=== PATIENT | female | born 1995 | race Caucasian/White ===

== ENCOUNTER 2016-03-15 20:30 | Outpatient (CLI) | payer OTHER ==
[~2016-03-15] VITALS: Ht 157.5 cm; Wt 86.0 kg
[~2016-03-15 20:30] MED LIST: ACET500C5 PO; BEN25 PO; CALC300T4 PO; ONDA4TAB14 PO; PRENAT PO; SODI126M NASAL
[2016-03-15 20:57] VITALS: Ht 157.5 cm; Wt 86.0 kg
[2016-03-15 20:58] VITALS: BP 118/72; PULSE 125; RESP 18
[2016-03-15 22:12] LABS: ADD UMIC YES; URINE BILIRUBIN (Dip) NEGATIVE (NEGATIVE); URINE BLOOD (Dip) NEGATIVE (NEGATIVE); URINE COLOR LT. YELLOW (YELLOW); URINE GLUCOSE (Dip) NEGATIVE (NEGATIVE); URINE KETONES (Dip) TRACE (NEGATIVE); URINE LEUKOCYTE ESTERASE (Dip) 1+ (NEGATIVE); URINE NITRITE (Dip) NEGATIVE (NEGATIVE); URINE TOTAL PROTEIN (Dip) NEGATIVE (NEGATIVE); URINE UROBILINOGEN (Dip) 1.0 E.U./dL (0.1-1.0)
[2016-03-15 22:29] LABS: BACTERIA,URINE FEW; SQUAMOUS EPITHELIAL CELL,UR MANY; URINE RBCS 0-2 /HPF (0)
--- NOTE | 2016-03-15 22:52 | HP ---
Date/Time of Note Date/Time of Note DATE: 03/15/16 TIME: 22:32 OB - History Hx of Present Free Text/Dictation Triage Pt is a 20yo G1 at 33+2 with no PMHx or issues presenting to OB triage for evaluation of a prolonged cough, sore throat and nasal congestion x1 month. Pt states she has recently started taking Robitussin DM and using Vicks VapoRub and nasal saline spray with little effect. Also drinking hot tea, gargling with salt water and using [place] cough drops. Does not feel like she is getting any better. Today pt also had three episodes of nonbloody, nonbilious vomiting with white product after coughing. Denies nausea. Able to tolerate POs w/o difficulty. C/o dizziness at times with standing. No syncopal events. Has noticed urinary incontinence with coughing as well. Reports normal FM, denies LOF, VB, UCs, fevers, chills or palpitations. Partner has only recently become ill within the last few days. Estimated Due Date: May 01, 2016 : 1 Obstetrical Complications: None Medical Complications: None Past Family/Social History * Past Medical, Surgical, Family and Obstetric Histories reviewed from chart. OB Admission Exam Vital Signs Vital Signs Vital Signs Date Time Temp Pulse Resp B/P Pulse Ox O2 Delivery O2 Flow Rate FiO2 03/15/16 20:58 98.4 125 18 118/72 Room Air Physical Exam HEENT: Abnormal (slight erythema around nares, mouth breathing) Heart: Other (tachycardia, regular rhythm) Lungs: Clear (at apices bilaterally, no wheezes, rales or rhonchi), Diminish ( at bases bilaterally), Equal Abdomen: WNL (gravid) Heart Rate: 130's Accelerations: Accelerations Present Decelerations: No Decelerations Varibility: Moderate Contractions on Admission: None OB Assessment/Plan Other Assessment: URI with protracted course Normal Reassuring well being Other plan: Discussed supportive measures for URI including use of a henna pot, steam, warm moist compresses for head/nasal congestion and continuing antitussive and cough drops for cough and soothing throat. Given tachycardia and trace ketones on U/A, recommend IVF for hydration. Recommend pt be further evaluated in ED given quite protracted course of URI. Pt may need CXR which, as discussed with the patient, has minimal radiation exposure to the fetus (and no direct radiation to the fetus) with shielding of the abdomen. Pt to f/up with OB as outpatient as scheduled. FKC, PTL, PPROM precautions reviewed. SOSA MIRANDA MD Mar 15, 2016 22:44
--- NOTE | 2016-03-16 04:58 | QN ---
Documentation Comment Chart reviewed and apparently pt left ED without being seen. Vital signs in ED notable for T 100.4. OB handstitching machine armhole feller will call pt and request pt return for IVF and further work-up given fever. SOSA MIRANDA MD Mar 16, 2016 04:57
== END 2016-03-15 23:00 | disposition home or self-care (01) ==
LOC: OBT 20:30 → L-D 20:31 → OBT 23:00
PROVIDERS: ATTEND Obstetrics & Gynecology
DX: O99.513 Diseases of the respiratory system complicating pregnancy, third trimester (principal); J06.9 Acute upper respiratory infection, unspecified; Z3A.33 33 weeks gestation of pregnancy
CPT/HCPCS: 81001; Z7500; 81003; G0463

== ENCOUNTER 2016-03-15 23:05 | Emergency (ER) | payer SELFPAY ==
[~2016-03-15] VITALS: Ht 162.6 cm; Wt 85.5 kg
[2016-03-15 23:08] VITALS: Ht 162.6 cm; Wt 85.5 kg
== END 2016-03-16 02:35 | disposition left against medical advice (07) ==
LOC: FTE 23:05
DX: Z53.21 Procedure and treatment not carried out due to patient leaving prior to being seen by health care provider (principal)

== ENCOUNTER 2016-04-26 11:40 | Inpatient (IN) | payer OTHER ==
[~2016-04-26] VITALS: Ht 157.5 cm; Wt 90.2 kg
[~2016-04-26 11:40] MED LIST changes: -ACET500C5 PO; -BEN25 PO; -CALC300T4 PO; -ONDA4TAB14 PO; -SODI126M NASAL
[2016-04-26 11:54] VITALS: Ht 157.5 cm; Wt 90.2 kg
[2016-04-26] MEDS ORDERED: LACTATED RINGER'S 1,000 ML IV SCH (13:33)
[2016-04-26] MEDS ORDERED: MISOPROSTOL 200 MCG TAB PR PRN (14:00)
[2016-04-26] MEDS ORDERED: CARBOPROST 250 MCG INJ IM PRN (14:00)
[2016-04-26] MEDS ORDERED: BUTORPHANOL 2 MG INJ IV PRN ×2 (14:00)
[2016-04-26] MEDS ORDERED: METHYLERGONOVINE 0.2 MG INJ IM PRN (14:00)
[2016-04-26] MEDS ORDERED: OXYTOCIN 30 UNITS/LR 500 ML IV PRN (14:00)
[2016-04-26] MEDS ORDERED: LACTATED RINGER'S 1,000 ML IV PRN (14:00)
[2016-04-26] MEDS ORDERED: OXYTOCIN 30 UNITS/LR 500 ML IV SCH (14:00)
[2016-04-26] MEDS ORDERED: LIDOCAINE 1% (MPF) 30 ML INJ INJ PRN (14:00)
[2016-04-26 15:02] LABS: INR 0.85; PROTIME 11.6 Sec (12.2-14.2); PT RATIO 0.9
[2016-04-26 15:03] LABS: PARTIAL THROMBOPLASTIN TIME 26.7 Sec (25.0-35.0)
[2016-04-26 15:08] LABS: BASOPHILS % 0.3 % (0.0-2.0); EOSINOPHILS % 0.1 % (0.0-7.0); HEMOGLOBIN 12.3 g/dl (12.0-16.0); LYMPHOCYTES # 2.1 10^3/ul (0.8-2.9); LYMPHOCYTES % 22.1 % (15.0-51.0); MEAN CORPUSCULAR HEMOGLOBIN 27.2 pg (29.0-33.0); MEAN CORPUSCULAR HGB CONC 33.4 g/dl (32.0-37.0); MEAN CORPUSCULAR VOLUME 81.3 fl (82.0-101.0); MEAN PLATELET VOLUME 10.1 fl (7.4-10.4); MONOCYTE # 0.6 10^3/ul (0.3-0.9); MONOCYTES % 6.6 % (0.0-11.0); NEUTROPHIL # 6.7 10^3/ul (1.6-7.5); NEUTROPHILS % 70.9 % (39.0-77.0); PLATELET COUNT 257 10^3/UL (140-440); RED BLOOD COUNT 4.54 10^6/ul (4.20-5.40); RED CELL DISTRIBUTION WIDTH 15.9 % (11.5-14.5); UNCORRECTED WBC 9.4 10^3/ul (4.8-10.8); WHITE BLOOD COUNT 9.4 10^3/ul (4.8-10.8)
[2016-04-26 15:13] LABS: CONDITION 1; LH ANALYZER COMMENTS 1
--- NOTE | 2016-04-26 21:08 | RADRPT ---
PROCEDURE: OB ultrasound CLINICAL INDICATION: Pelvic pain TECHNIQUE: Multiple transverse and longitudinal OB images of the pelvis were obtained. The images were reviewed on a high-resolution PACS workstation. COMPARISON: None FINDINGS: A single live intrauterine is seen. The presentation is vertex. The placenta is grade 3 a nd anterior in location. No evidence of placenta abruption or previa is seen. The heart rate i s 154 beats per minute. The amniotic fluid index is 8.9 cm. movement 2 tone 2 breathing 2 Amniotic fluid 2 IMPRESSION: Biophysical profile of 10/14. RPTAT: HPNM Physician Ria Date Time Electronically viewed and signed by Physician Ria on 04/26/2016 21:08 /
--- NOTE | 2016-04-26 21:10 | RADRPT ---
PROCEDURE: Obstetrical ultrasound. CLINICAL INDICATION: , evaluation. Pelvic pain. TECHNIQUE: Transabdominal sonographic images of the pelvis are obtained. COMPARISON: Pelvic ultrasound 02/27/2016 FINDINGS: Single intrauterine gestation. There is a cephalic presentation. Measurements were made in order to determine age. The results are as follows: BPD = 9.37 cm HC = 33.35 cm AC = 34.20 cm FL = 7.04 cm Heart rate = 127 beats per minute The placenta is anterior. There is no evidence for an abruption or placenta previa. Ovaries are not visualized. IMPRESSION: Single intrauterine gestation of approximately 37 weeks 5 days by ultrasound criteria. Estimated weight = 3165 g; 30 percentile for estimated ultrasound age. RPTAT: AADD .William Cortez MD, Date Time Electronically viewed and signed by .William Cortez MD, on 04/26/2016 21:10 .B/
--- NOTE | 2016-04-26 22:02 | QN ---
Documentation Comment Laborist Asked to see pt by RN for discharge after verbal discharge order received from Dr. Vásquez. Pt admitted earlier today in early labor and does not desire augmentation of labor or pain meds at this time. Thus is requesting d/c so that she may labor at home and return when labor has progressed. Pt is GBS negative. EFW/BPP/JOSE L obtained and all reassuring. FHT reviewed and reassuring as well. Pt to be d/c'd home. Strict return precautions discussed with pt in front of family, including decreased FM, vaginal bleeding, leaking fluid or stronger, more frequent or painful UCs. Questions answered to patient's satisfaction. Pt has appointment in clinic scheduled for 05/01/16 which she was advised to attend if she has not delivered before that date. SOSA MIRANDA MD Apr 26, 2016 22:02
== END 2016-04-26 21:34 | disposition home or self-care (01) | DRG 780 ==
LOC: L-D 11:40 → OBT 11:40 → L-D 13:42
PROVIDERS: ADMIT Obstetrics & Gynecology; ATTEND Obstetrics & Gynecology
DX: O47.9 False labor, unspecified (principal)
CPT/HCPCS: 76815; 76818; 85025; 85610; 85730; 86592; 86900; 86901; G0463; J2590; J7120

== ENCOUNTER 2016-04-27 00:54 | Inpatient (IN) | payer OTHER ==
[~2016-04-27] VITALS: Ht 157.5 cm; Wt 90.2 kg
[2016-04-27 01:15] VITALS: Ht 157.5 cm; Wt 90.2 kg
[2016-04-27] MEDS ORDERED: OXYTOCIN 30 UNITS/LR 500 ML IV PRN (01:30)
[2016-04-27] MEDS ORDERED: CARBOPROST 250 MCG INJ IM PRN (01:30)
[2016-04-27] MEDS ORDERED: LIDOCAINE 1% (MPF) 30 ML INJ INJ PRN (01:30)
[2016-04-27] MEDS ORDERED: METHYLERGONOVINE 0.2 MG INJ IM PRN (01:30)
[2016-04-27] MEDS ORDERED: IBUPROFEN 600 MG TAB PO PRN (01:30)
[2016-04-27] MEDS ORDERED: LACTATED RINGER'S 1,000 ML IV PRN (01:30)
[2016-04-27] MEDS ORDERED: MISOPROSTOL 200 MCG TAB PR PRN (01:30)
[2016-04-27] MEDS: LACTATED RINGER'S 1,000 ML IV SCH ×3 (01:35→12:44)
--- NOTE | 2016-04-27 01:44 | HP ---
Date/Time of Note Date/Time of Note DATE: 04/27/16 TIME: 01:40 OB - History Hx of Present Free Text/Dictation 20yo G1 at 39+3 by L=20 recently discharged a few hours ago in early labor 2/2 pt desire to proceed with labor naturally. Now returning with increasingly painful UCs and progressing cervical dilation. Denies LOF or VB. Normal FM. Estimated Due Date: May 01, 2016 : 1 Care: Good Care Obstetrical Complications: None Medical Complications: None Other Concerns: Hx of Tobacco use. Denies current use Past Family/Social History * Past Medical, Surgical, Family and Obstetric Histories reviewed from chart. Blood Type: AB+ Rubella: immune RPR/VDRL: Negative GBS Status: Negative HBsAG: Negative OB Admission Exam Physical Exam HEENT: WNL Heart: Rhythm Normal Lungs: Clear Abdomen: WNL (gravid) Extremities: Edema (1+ pitting symmetric) Cervical Dilatation: 4cm Effacement: 100% Station: -2 Membranes: Intact Heart Rate: 120's Accelerations: Accelerations Present Decelerations: No Decelerations Varibility: Moderate Contractions on Admission: < 5 Minutes Apart Intensity: Firm OB Assessment/Plan Other Assessment: Early labor with cervical change Reassuring well being Other plan: Admit to L&D Expectant management of labor given cervical change. If no change on subsequent exams, consider augmentation GBS negative, thus no indication for ppx Epidural per pt request Anticipate Plan d/w pt. Questions answered to her satisfaction. SOSA MIRANDA MD Apr 27, 2016 01:44
[2016-04-27] MEDS ORDERED: FENTAnyl 2MCG/ML-ROPIV 0.2% 100 ML ONE (01:47)
[2016-04-27 01:59] VITALS: BP 133/68; PULSE 116; RESP 17
[2016-04-27] MEDS ORDERED: DIPHENHYDRAMINE 50 MG INJ IV PRN (02:00)
[2016-04-27] MEDS ORDERED: FENTAnyl 2MCG/ML-ROPIV 0.2% 100 ML BAG EPI SCH (02:00)
[2016-04-27] MEDS ORDERED: NALOXONE (0.4 MG/ML) INJ IV PRN (02:00)
[2016-04-27] MEDS ORDERED: ONDANSETRON 4 MG INJ IV PRN ×2 (02:00→17:30)
[2016-04-27] MEDS ORDERED: OXYTOCIN 30 UNITS/LR 500 ML IV SCH (10:00)
--- NOTE | 2016-04-27 16:30 | LDN ---
Date/Time of Note Date/Time of Note DATE: 04/27/16 TIME: 16:24 Delivery Summary Normal spontaneous vaginal delivery of a baby girl from 0A position shoulder was delivered without any difficulty followed with the rest of the baby's body, cord was clamped after stopped pulsation placenta spontaneous expulsion, inspected complete patient sustained very small peroneal laceration repaired with 3-0 chromic catgut, blood loss 200 cc Placenta Delivered: Spontaneously Meconium: none Perineum intact?: No Sponge & Needle done & correct: Yes All needle counts correct: Yes Any foreign bodies felt in the: No Problems: Infant Delivery Information Sex Sex: female Apgars 1 Minute: 9 5 Minute: 9 Suctioning Nose & mouth suctioned at bryan: Yes Delee suction performed: No Umbilical Cord Umbilical cord with: 3 Vessels Cord presentations: nuchal cord Cord Blood was obtained: Yes LORENZO ROSADO MD Apr 27, 2016 16:30
[2016-04-27] MEDS ORDERED: ACETAMINOPHEN/CODEINE #3 TAB PO PRN ×2 (17:30)
[2016-04-27] MEDS ORDERED: ACETAMINOPHEN 325 MG TAB PO PRN (17:30)
[2016-04-27] MEDS ORDERED: LANOLIN 7 GM TUBE TOP PRN (17:30)
[2016-04-27] MEDS ORDERED: DIBUCAINE 1% 30 GM OINT PR PRN (17:30)
[2016-04-27] MEDS ORDERED: OXYCODONE/ASPIRIN (4.88/325) TAB PO PRN ×2 (17:30)
[2016-04-27 17:45] VITALS: BP 121/79; PULSE 115; RESP 18
[2016-04-27] MEDS ORDERED: METHYLERGONOVINE 0.2 MG INJ ONE (17:50)
[2016-04-27] MEDS: IBUPROFEN 600 MG TAB PO SCH (18:00)
[2016-04-27] MEDS: BENZOCAINE 20% 56 ML SPRAY TOP PRN (18:31)
[2016-04-27] MEDS: WITCH HAZEL/GLYCERIN PAD PR PRN (18:31)
[2016-04-27 19:55] VITALS: BP 122/74; PULSE 100; RESP 18
[2016-04-27] MEDS: OXYTOCIN 30 UNITS/LR 500 ML IV SCH (19:56)
[2016-04-27] MEDS: SENNA/DOCUSATE NA (8.6MG/50MG) TAB PO SCH (21:56)
[2016-04-28] MEDS: IBUPROFEN 600 MG TAB PO SCH ×5 (00:05→23:50)
[2016-04-28] MEDS: OXYTOCIN 30 UNITS/LR 500 ML IV SCH (00:10)
[2016-04-28 00:15] VITALS: BP 124/72; PULSE 90; RESP 19
[2016-04-28 04:00] VITALS: BP 123/60; PULSE 90; RESP 18
[2016-04-28 07:34] LABS: BASOPHILS % 0.2 % (0.0-2.0); EOSINOPHILS % 0.2 % (0.0-7.0); HEMATOCRIT 28.9 % (37.0-47.0); HEMOGLOBIN 9.7 g/dl (12.0-16.0); LYMPHOCYTES # 2.7 10^3/ul (0.8-2.9); LYMPHOCYTES % 16.6 % (15.0-51.0); MEAN CORPUSCULAR HEMOGLOBIN 27.6 pg (29.0-33.0); MEAN CORPUSCULAR HGB CONC 33.6 g/dl (32.0-37.0); MEAN CORPUSCULAR VOLUME 82.2 fl (82.0-101.0); MEAN PLATELET VOLUME 9.7 fl (7.4-10.4); MONOCYTE # 1.2 10^3/ul (0.3-0.9); MONOCYTES % 7.7 % (0.0-11.0); NEUTROPHIL # 12.1 10^3/ul (1.6-7.5); NEUTROPHILS % 75.3 % (39.0-77.0); PLATELET COUNT 247 10^3/UL (140-440); RED BLOOD COUNT 3.52 10^6/ul (4.20-5.40); RED CELL DISTRIBUTION WIDTH 16.5 % (11.5-14.5)
[2016-04-28 07:40] LABS: CONDITION 1; LH ANALYZER COMMENTS 1
[2016-04-28 08:40] VITALS: BP 122/72; PULSE 106; RESP 14
[2016-04-28] MEDS: SENNA/DOCUSATE NA (8.6MG/50MG) TAB PO SCH ×2 (11:51→21:38)
[2016-04-28 12:02] VITALS: BP 122/70; PULSE 104; RESP 16
[2016-04-28 16:38] VITALS: BP 118/59; PULSE 100; RESP 14
--- NOTE | 2016-04-28 16:53 | PN ---
Date/Time of Note Date/Time of Note DATE: 04/28/16 TIME: 16:51 OB Subjective Subjective Subjective day 1, vital sign stable afebrile abdomen soft uterus firm lochia normal extremity normal Laboratory Tests Test 04/28/16 06:58 Basophils # 0.010^3/ul Basophils % 0.2% Blood Morphology Comment Eosinophils # 0.010^3/ul Eosinophils % 0.2% Hematocrit 28.9% Hemoglobin 9.7g/dl Hepatitis B Surface Antigen NEGATIVE Lymphocytes # 2.710^3/ul Lymphocytes % 16.6% Mean Corpuscular Hemoglobin 27.6pg Mean Corpuscular Hemoglobin Concent 33.6g/dl Mean Corpuscular Volume 82.2fl Mean Platelet Volume 9.7fl Monocytes # 1.210^3/ul Monocytes % 7.7% Neutrophils # 12.110^3/ul Neutrophils % 75.3% Nucleated Red Blood Cells # 0.010^3/ul Nucleated Red Blood Cells % 0.0/100WBC Platelet Count 43150^3/UL Red Blood Count 3.5210^6/ul Red Cell Distribution Width 16.5% White Blood Count 16.010^3/ul Current Medications Medications (Trade) Dose Ordered Sig/Noni Route PRN Reason Start Time Stop Time Status Last Admin Dose Admin Lactated Ringer's (Lr) 1,000 ml @ 125 mls/hr Q8H IV 04/27/16 01:19 04/27/16 17:25 DC 04/27/16 12:44 Lidocaine (Xylocaine 1% (Mpf)) 30 ml ONCE PRN INJ EPISIOTOMY/TEARING 04/27/16 01:30 04/27/16 17:25 DC Ibuprofen 600 mg 600 mg ONCE PRN PO Mild Pain (Pain Score 1-3) 04/27/16 01:30 04/27/16 17:25 DC Lactated Ringer's 1,000 ml @ 2,000 mls/hr Q30M PRN IV PRE-EPIDURAL BOLUS 04/27/16 01:30 04/27/16 17:25 DC 04/27/16 01:54 Oxytocin/Lactated Ringer's 500 ml @ 0 mls/hr ONCE PRN IV For Hemorrhage Management 04/27/16 01:30 04/27/16 17:25 DC 04/27/16 15:51 Methylergonovine Maleate (Methergine) 0.2 mg ONCE PRN IM VAGINAL BLEEDING 04/27/16 01:30 04/27/16 17:25 DC 04/27/16 17:54 Carboprost Tromethamine (Hemabate) 250 mcg ONCE PRN IM VAGINAL BLEEDING 04/27/16 01:30 04/27/16 17:25 DC Misoprostol (Cytotec) 1,000 mcg ONCE PRN [place] VAGINAL BLEEDING 04/27/16 01:30 04/27/16 17:25 DC Naloxone HCl (Narcan) 0.1 mg Q2M PRN IV FOR RESP RATE 8 OR LESS 04/27/16 02:00 04/27/16 17:24 DC Diphenhydramine HCl (Benadryl) 25 mg Q6H PRN IV ITCHING 04/27/16 02:00 04/27/16 17:24 DC Ondansetron HCl (Zofran Inj) 4 mg Q6H PRN IV NAUSEA AND/OR VOMITING 04/27/16 02:00 04/27/16 17:24 DC Fentanyl/ Ropivacaine 100 ml 100 ml EPIDURAL INFUSION EPI 04/27/16 02:00 04/27/16 17:24 DC 04/27/16 11:39 Fentanyl/ Ropivacaine 100 ml @ ud STK-MED ONCE .ROUTE 04/27/16 01:47 04/27/16 01:48 DC Oxytocin/Lactated Ringer's 500 ml @ 0 mls/hr Q0M IV 04/27/16 10:00 04/27/16 17:24 DC 04/27/16 10:02 Oxytocin/Lactated Ringer's 500 ml @ 125 mls/hr Q4H IV 04/27/16 17:23 04/28/16 01:22 DC 04/28/16 00:10 Ibuprofen (Motrin) 600 mg Q6 PO 04/27/16 18:00 04/28/16 11:51 Acetaminophen (Tylenol Tab) 650 mg Q4H PRN PO PAIN LEVEL 1-5 04/27/16 17:30 04/27/16 18:31 Acetaminophen/ Codeine Phosphate (Tylenol No.3) 1 tab Q4H PRN PO PAIN LEVEL 1-5 04/27/16 17:30 Acetaminophen/ Codeine Phosphate (Tylenol No.3) 2 tab Q4H PRN PO PAIN LEVEL 6-10 04/27/16 17:30 Oxycodone/Aspirin (Percodan) 1 tab Q3H PRN PO PAIN LEVEL 1-5 04/27/16 17:30 Oxycodone/Aspirin (Percodan) 2 tab Q3H PRN PO PAIN LEVEL 6-10 04/27/16 17:30 Ondansetron HCl (Zofran Inj) 4 mg Q6H PRN IV NAUSEA AND/OR VOMITING 04/27/16 17:30 Senna/Docusate Sodium (Senokot-S) 1 tab BID PO 04/27/16 21:00 04/28/16 11:51 Witch Irene/ Glycerin (Tucks Pads) 1 pad BEDSIDE MEDICATION PRN [place] HEMORRHOID/EPISIOTMY PAIN 04/27/16 17:30 04/27/16 18:31 Benzocaine (Dermoplast [place]) 1 spray BEDSIDE MEDICATION PRN TOP HEMORRHOID/EPISIOTMY PAIN 04/27/16 17:30 04/27/16 18:31 Dibucaine (Nupercainal) 1 applic BEDSIDE MEDICATION PRN [place] HEMORRHOID/EPISIOTMY PAIN 04/27/16 17:30 Lanolin ([id number]) 1 applic BEDSIDE MEDICATION PRN TOP BEDSIDE FOR EVANGELIST TO NIPPLES 04/27/16 17:30 04/27/16 18:31 Measles/Mumps/ Rubella Vaccine Live (Mmr Ii Vaccine) 0.5 ml ONCE ONCE SC* 04/29/16 09:00 04/29/16 09:01 Methylergonovine Maleate (Methergine) 0.2 mg STK-MED ONCE .ROUTE 04/27/16 17:50 04/27/16 17:51 DC Influenza Virus Vaccine (Fluzone) 0.5 ml ONCE ONCE IM* 04/29/16 09:00 04/29/16 09:01 LORENZO ROSADO MD Apr 28, 2016 16:52
[2016-04-28 20:15] VITALS: BP 134/81; PULSE 112; RESP 19
[2016-04-29 04:15] VITALS: BP 121/76; PULSE 101; RESP 19
[2016-04-29] MEDS: IBUPROFEN 600 MG TAB PO SCH ×2 (06:08→12:36)
[2016-04-29 08:20] VITALS: BP 122/67; PULSE 104; RESP 19
[2016-04-29] MEDS: SENNA/DOCUSATE NA (8.6MG/50MG) TAB PO SCH (08:35)
[2016-04-29] MEDS ORDERED: MEASLES,MUMPS,RUBELLA VACCINE INJ SC* ONE (09:00)
[2016-04-29] MEDS ORDERED: INFLUENZA VIRUS VACCINE 0.5 ML (DISPENSING) IM* ONE (09:00)
[2016-04-29 09:54] LABS: BASOPHILS % 0.3 % (0.0-2.0); EOSINOPHILS # 0.1 10^3/ul (0.0-0.5); EOSINOPHILS % 0.9 % (0.0-7.0); HEMOGLOBIN 8.3 g/dl (12.0-16.0); LYMPHOCYTES # 2.8 10^3/ul (0.8-2.9); LYMPHOCYTES % 23.6 % (15.0-51.0); MEAN CORPUSCULAR HEMOGLOBIN 27.2 pg (29.0-33.0); MEAN CORPUSCULAR HGB CONC 33.2 g/dl (32.0-37.0); MEAN CORPUSCULAR VOLUME 81.8 fl (82.0-101.0); MEAN PLATELET VOLUME 9.5 fl (7.4-10.4); MONOCYTE # 0.7 10^3/ul (0.3-0.9); MONOCYTES % 5.9 % (0.0-11.0); NEUTROPHIL # 8.2 10^3/ul (1.6-7.5); NEUTROPHILS % 69.3 % (39.0-77.0); PLATELET COUNT 251 10^3/UL (140-440); RED BLOOD COUNT 3.06 10^6/ul (4.20-5.40); RED CELL DISTRIBUTION WIDTH 16.4 % (11.5-14.5); UNCORRECTED WBC 11.9 10^3/ul (4.8-10.8); WHITE BLOOD COUNT 11.9 10^3/ul (4.8-10.8)
[2016-04-29 10:13] LABS: CONDITION 1; LH ANALYZER COMMENTS 1
--- NOTE | 2016-04-29 10:24 | PD.PPDC ---
CONCRETE FINISHER Discharge Instruction Condition Patient Condition: Good Diet Diet: Resume Regular Diet Activity/Restrictions Activity: Normal Activity May Shower Restrictions: No Exercising No Lifting No Driving No Sexual Activity Nothing in the Vagina No [place] No Tampons, douche Wound/Drain Care Instructions Wound/Drain Care Instructions: Wash with soap and water Keep clean and dry Follow-up Follow-up with Physician: 2, Week/Weeks Return to clinic for COMM[employer]ITY [employer] WORKER Instructions: Fever greater than 101 Worsening abdominal pain More than 2 pads per hour OB Instructions: Breast Tenderness Blurried Vision Headache LORENZO ROSADO MD Apr 29, 2016 10:24
--- NOTE | 2016-04-29 10:28 | DS ---
Date/Time of Note Date/Time of Note DATE: 04/29/16 TIME: 10:26 Obstetrical Discharge Record Final Diagnosis Final Diagnosis: Term delivered Vaginal Delivery Obstetrical Delivery: Spontaneous Condition on Discharge Physical Assessment Last Vitals: day 2, Afebrile vital sign stable, abdomen soft, uterus firm, lochia normal, extremity normal, patient discharged home, follow-up instructions, to make appointment in 2 weeks to be seen at the office Laboratory Tests Test 04/29/16 08:57 Basophils # 0.010^3/ul Basophils % 0.3% Blood Morphology Comment Eosinophils # 0.110^3/ul Eosinophils % 0.9% Hematocrit 25.0% Hemoglobin 8.3g/dl Lymphocytes # 2.810^3/ul Lymphocytes % 23.6% Mean Corpuscular Hemoglobin 27.2pg Mean Corpuscular Hemoglobin Concent 33.2g/dl Mean Corpuscular Volume 81.8fl Mean Platelet Volume 9.5fl Monocytes # 0.710^3/ul Monocytes % 5.9% Neutrophils # 8.210^3/ul Neutrophils % 69.3% Nucleated Red Blood Cells # 0.010^3/ul Nucleated Red Blood Cells % 0.0/100WBC Platelet Count 38946^3/UL Red Blood Count 3.0610^6/ul Red Cell Distribution Width 16.4% White Blood Count 11.910^3/ul Current Medications Medications (Trade) Dose Ordered Sig/Noni Route PRN Reason Start Time Stop Time Status Last Admin Dose Admin Lactated Ringer's (Lr) 1,000 ml @ 125 mls/hr Q8H IV 04/27/16 01:19 04/27/16 17:25 DC 04/27/16 12:44 Lidocaine (Xylocaine 1% (Mpf)) 30 ml ONCE PRN INJ EPISIOTOMY/TEARING 04/27/16 01:30 04/27/16 17:25 DC Ibuprofen 600 mg 600 mg ONCE PRN PO Mild Pain (Pain Score 1-3) 04/27/16 01:30 04/27/16 17:25 DC Lactated Ringer's 1,000 ml @ 2,000 mls/hr Q30M PRN IV PRE-EPIDURAL BOLUS 04/27/16 01:30 04/27/16 17:25 DC 04/27/16 01:54 Oxytocin/Lactated Ringer's 500 ml @ 0 mls/hr ONCE PRN IV For Hemorrhage Management 04/27/16 01:30 04/27/16 17:25 DC 04/27/16 15:51 Methylergonovine Maleate (Methergine) 0.2 mg ONCE PRN IM VAGINAL BLEEDING 04/27/16 01:30 04/27/16 17:25 DC 04/27/16 17:54 Carboprost Tromethamine (Hemabate) 250 mcg ONCE PRN IM VAGINAL BLEEDING 04/27/16 01:30 04/27/16 17:25 DC Misoprostol (Cytotec) 1,000 mcg ONCE PRN [place] VAGINAL BLEEDING 04/27/16 01:30 04/27/16 17:25 DC Naloxone HCl (Narcan) 0.1 mg Q2M PRN IV FOR RESP RATE 8 OR LESS 04/27/16 02:00 04/27/16 17:24 DC Diphenhydramine HCl (Benadryl) 25 mg Q6H PRN IV ITCHING 04/27/16 02:00 04/27/16 17:24 DC Ondansetron HCl (Zofran Inj) 4 mg Q6H PRN IV NAUSEA AND/OR VOMITING 04/27/16 02:00 04/27/16 17:24 DC Fentanyl/ Ropivacaine 100 ml 100 ml EPIDURAL INFUSION EPI 04/27/16 02:00 04/27/16 17:24 DC 04/27/16 11:39 Fentanyl/ Ropivacaine 100 ml @ ud STK-MED ONCE .ROUTE 04/27/16 01:47 04/27/16 01:48 DC Oxytocin/Lactated Ringer's 500 ml @ 0 mls/hr Q0M IV 04/27/16 10:00 04/27/16 17:24 DC 04/27/16 10:02 Oxytocin/Lactated Ringer's 500 ml @ 125 mls/hr Q4H IV 04/27/16 17:23 04/28/16 01:22 DC 04/28/16 00:10 Ibuprofen (Motrin) 600 mg Q6 PO 04/27/16 18:00 04/29/16 06:08 Acetaminophen (Tylenol Tab) 650 mg Q4H PRN PO PAIN LEVEL 1-5 04/27/16 17:30 04/27/16 18:31 Acetaminophen/ Codeine Phosphate (Tylenol No.3) 1 tab Q4H PRN PO PAIN LEVEL 1-5 04/27/16 17:30 Acetaminophen/ Codeine Phosphate (Tylenol No.3) 2 tab Q4H PRN PO PAIN LEVEL 6-10 04/27/16 17:30 Oxycodone/Aspirin (Percodan) 1 tab Q3H PRN PO PAIN LEVEL 1-5 04/27/16 17:30 Oxycodone/Aspirin (Percodan) 2 tab Q3H PRN PO PAIN LEVEL 6-10 04/27/16 17:30 Ondansetron HCl (Zofran Inj) 4 mg Q6H PRN IV NAUSEA AND/OR VOMITING 04/27/16 17:30 Senna/Docusate Sodium (Senokot-S) 1 tab BID PO 04/27/16 21:00 04/29/16 08:35 Witch Irene/ Glycerin (Tucks Pads) 1 pad BEDSIDE MEDICATION PRN [place] HEMORRHOID/EPISIOTMY PAIN 04/27/16 17:30 04/27/16 18:31 Benzocaine (Dermoplast [place]) 1 spray BEDSIDE MEDICATION PRN TOP HEMORRHOID/EPISIOTMY PAIN 04/27/16 17:30 04/27/16 18:31 Dibucaine (Nupercainal) 1 applic BEDSIDE MEDICATION PRN [place] HEMORRHOID/EPISIOTMY PAIN 04/27/16 17:30 Lanolin ([id number]) 1 applic BEDSIDE MEDICATION PRN TOP BEDSIDE FOR EVANGELIST TO NIPPLES 04/27/16 17:30 04/27/16 18:31 Measles/Mumps/ Rubella Vaccine Live (Mmr Ii Vaccine) 0.5 ml ONCE ONCE SC* 04/29/16 09:00 04/29/16 09:01 DC Methylergonovine Maleate (Methergine) 0.2 mg STK-MED ONCE .ROUTE 04/27/16 17:50 04/27/16 17:51 DC Influenza Virus Vaccine (Fluzone) 0.5 ml ONCE ONCE IM* 04/29/16 09:00 04/29/16 09:01 DC Voiding: Yes Fundus: Firm Calf Tenderness: No Patient Condition: Good LORENZO ROSADO MD Apr 29, 2016 10:28
[2016-04-29] MEDS: BENZOCAINE 20% 56 ML SPRAY TOP PRN (12:36)
[2016-04-29] MEDS: WITCH HAZEL/GLYCERIN PAD PR PRN (12:37)
== END 2016-04-29 16:20 | disposition home or self-care (01) | DRG 775 ==
LOC: OBT 00:54 → L-D 00:55 → PP1 17:38
PROVIDERS: ADMIT Obstetrics & Gynecology; ATTEND Obstetrics & Gynecology
PROC: 10E0XZZ Delivery of Products of Conception, External Approach (ICD-10-PCS; principal; 2016-04-27)
PROC: 3E00X4Z Introduction of Serum, Toxoid and Vaccine into Skin and Mucous Membranes, External Approach (ICD-10-PCS; 2016-04-29)
DX: O69.81X0 Labor and delivery complicated by cord around neck, without compression, not applicable or unspecified (principal); Z23 Encounter for immunization; Z3A.39 39 weeks gestation of pregnancy; Z37.0 Single live birth
CPT/HCPCS: 62319; 85025; 86850; 86900; 86901; 87340; 90686; 99464; A4310; J2210; J2590; J3010; J7120

== ENCOUNTER 2016-05-14 03:02 | Emergency (ER) | payer OTHER ==
[~2016-05-14] VITALS: Ht 157.5 cm; Wt 78.5 kg
[2016-05-14 03:13] VITALS: Ht 157.5 cm; Wt 78.5 kg
[2016-05-14] MEDS ORDERED: ONDANSETRON 4 MG INJ IV STA (03:17)
[2016-05-14] MEDS ORDERED: SOD CHLORIDE 0.9% 500 ML IV STA (03:17)
[2016-05-14] MEDS ORDERED: morphine 4 MG/ML VIAL IV STA (03:17)
[2016-05-14 03:34] LABS: URINE BLOOD (Dip) POC 2+ (NEGATIVE)
[2016-05-14 03:56] LABS: ADD SCAN DIFF NO
[2016-05-14 04:00] LABS: BASOPHILS % 0.4 % (0.0-2.0); EOSINOPHILS # 0.1 10^3/ul (0.0-0.5); EOSINOPHILS % 0.7 % (0.0-7.0); HEMATOCRIT 34.1 % (37.0-47.0); HEMOGLOBIN 10.5 g/dl (12.0-16.0); LYMPHOCYTES # 2.2 10^3/ul (0.8-2.9); MEAN CORPUSCULAR HEMOGLOBIN 25.5 pg (29.0-33.0); MEAN CORPUSCULAR HGB CONC 30.8 g/dl (32.0-37.0); MEAN CORPUSCULAR VOLUME 82.8 fl (82.0-101.0); MEAN PLATELET VOLUME 9.7 fl (7.4-10.4); MONOCYTE # 0.6 10^3/ul (0.3-0.9); MONOCYTES % 6.3 % (0.0-11.0); NEUTROPHIL # 6.1 10^3/ul (1.6-7.5); NEUTROPHILS % 68.2 % (39.0-77.0); PLATELET COUNT 489 10^3/UL (140-415); RED BLOOD COUNT 4.12 10^6/ul (4.20-5.40); RED CELL DISTRIBUTION WIDTH 15.5 % (11.5-14.5)
[2016-05-14] MEDS ORDERED: METOCLOPRAMIDE 10 MG INJ IV ONE (04:00)
--- NOTE | 2016-05-14 04:17 | RADRPT ---
PROCEDURE: XR Abdomen. CLINICAL INDICATION: Abdominal pain. TECHNIQUE: 2 frontal views of the abdomen. COMPARISON: None. FINDINGS: The bowel gas pattern is unremarkable. There is no bowel obstruction or free air. There is no orga nomegaly. There is no abnormal calcification. The osseous structures are unremarkable. IMPRESSION: Unremarkable bowel gas pattern. .Dontae Mascorro MD, MD Date Time Electronically viewed and signed by .Dontae Mascorro MD, on 05/14/2016 04:17 .T/
[2016-05-14 04:19] LABS: ALBUMIN 3.7 g/dl (3.3-4.9); POTASSIUM 3.6 mmol/L (3.5-5.1)
[2016-05-14 04:21] LABS: BILIRUBIN,INDIRECT 0.1 mg/dl (0-1.1); BILIRUBIN,TOTAL 0.1 mg/dl (0.2-1.3); CREATININE 0.73 mg/dl (0.44-1.00)
[2016-05-14 04:22] LABS: ALBUMIN/GLOBULIN RATIO 1.12
--- NOTE | 2016-05-14 04:25 | ERD ---
ER Documentation Chief Complaint Date/Time DATE: 05/14/16 TIME: 04:24 Chief Complaint upper abd pain radiates around both sides to back since 2300 HPI This is a very pleasant 20 year female with abdominal pain that radiates down her back since 2300. She denies any fevers or chills. She denies any other current complaints. She says she been constipated for the past 3 or 4 days. Denies any current issues. Pain is mild to moderate in intensity colicky nature with no exacerbating or alleviating factors. ROS All systems reviewed and are negative except as per history of present illness. Medications Home Meds Reported Medications Multivit/Min/Fol Ac/Iron/Pren* ( S*) 1 Tab Tab, 1 TAB PO DAILY, TAB 02/27/16 Allergies Allergies: Coded Allergies: No Known Allergy (Unverified , 11/03/13) PMhx/Soc History of Surgery: No Anesthesia Reaction: No Hx Neurological Disorder: No Hx Respiratory Disorders: No Hx Cardiac Disorders: No Hx Psychiatric Problems: No Hx Miscellaneous Medical Probl: Yes (anxiety) Hx Alcohol Use: No Hx Substance Use: No Hx Tobacco Use: No Physical Exam Vitals Vital Signs Date Time Temp Pulse Resp B/P Pulse Ox O2 Delivery O2 Flow Rate FiO2 05/14/16 03:13 98.7 98 20 110/67 99 Physical Exam Const: [] Head: Atraumatic Eyes: Normal Conjunctiva ENT: Normal External Ears, Nose and Mouth. Neck: Full range of motion..~ No meningismus. Resp: Clear to auscultation bilaterally Cardio: Regular rate and rhythm, no murmurs Abd: Soft, non tender, non distended. Normal bowel sounds Skin: No petechiae or rashes Back: No midline or flank tenderness Ext: No cyanosis, or edema Neur: Awake and alert Psych: Normal Mood and Affect Result Diagram: 05/14/16 0340 05/14/16 0340 Results 24 hrs Laboratory Tests Test 05/14/16 03:37 05/14/16 03:40 Bedside Urine Blood 2+ Bedside Urine Glucose (UA) Negative Bedside Urine Ketones (LAB) Trace Bedside Urine Leukocyte Esterase (L 3+ Bedside Urine Nitrite (LAB) Negative Bedside Urine Protein (LAB) 1+ Bedside Urine pH (LAB) 6.0 Alanine Aminotransferase (ALT/SGPT) Pending Albumin 3.7g/dl Albumin/Globulin Ratio Pending Alkaline Phosphatase Pending Anion Gap Pending Aspartate Amino Transf (AST/SGOT) Pending Basophils # 0.010^3/ul Basophils % 0.4% Blood Urea Nitrogen Pending Calcium Level Pending Carbon Dioxide Level Pending Chloride Level 104mmol/L Creatinine 0.73mg/dl Direct Bilirubin Pending Eosinophils # 0.110^3/ul Eosinophils % 0.7% Globulin Pending Glucose Level Pending Hematocrit 34.1% Hemoglobin 10.5g/dl Indirect Bilirubin Pending Lipase Pending Lymphocytes # 2.210^3/ul Lymphocytes % 24.0% Mean Corpuscular Hemoglobin 25.5pg Mean Corpuscular Hemoglobin Concent 30.8g/dl Mean Corpuscular Volume 82.8fl Mean Platelet Volume 9.7fl Monocytes # 0.610^3/ul Monocytes % 6.3% Neutrophils # 6.110^3/ul Neutrophils % 68.2% Nucleated Red Blood Cells # 0.010^3/ul Nucleated Red Blood Cells % 0.0/100WBC Platelet Count 37142^3/UL Potassium Level 3.6mmol/L Red Blood Count 4.1210^6/ul Red Cell Distribution Width 15.5% Sodium Level 146mmol/L Total Bilirubin Pending Total Protein Pending White Blood Count 9.010^3/ul Current Medications Medications (Trade) Dose Ordered Sig/Noni Route PRN Reason Start Time Stop Time Status Last Admin Dose Admin Sodium Chloride (NS) 500 ml @ 500 mls/hr Q1H STAT IV 05/14/16 03:17 05/14/16 04:16 DC 05/14/16 03:49 Morphine Sulfate (morphine) 4 mg ONCE STAT IV 05/14/16 03:17 05/14/16 03:18 DC 05/14/16 03:50 Ondansetron HCl (Zofran Inj) 4 mg ONCE STAT IV 05/14/16 03:17 05/14/16 03:18 DC 05/14/16 03:49 Metoclopramide HCl (Reglan) 10 mg ONCE ONCE IV 05/14/16 04:00 05/14/16 04:01 DC 05/14/16 03:53 Procedures/MDM X-ray Abdomen 1V Interpreted by me: Free Air: [None] Bowel Gas: [Nonspecific] Soft Tissue: [Normal] Medical decision-makin-year-old female with evidence of UTI constipation. Patient be discharged with Keflex and Colace. Follow-up in 8 hours for serial abdominal exams. Otherwise follow-up PCP. Departure Diagnosis: Primary Impression: Abdominal pain Abdominal location: unspecified location Qualified Code: R10.9 - Abdominal pain, unspecified location Condition: Stable VIVIANE ELIZABETH May 14, 2016 04:25
[2016-05-14] MEDS ORDERED: CEPH-443 PO (04:29)
[2016-05-14] MEDS ORDERED: TRAM50TA2 PO (04:29)
[2016-05-14] MEDS ORDERED: DOCU-144 PO (04:29)
[2016-05-14 04:39] LABS: ADD UMIC YES; URINE BILIRUBIN (Dip) NEGATIVE (NEGATIVE); URINE BLOOD (Dip) 1+ (NEGATIVE); URINE COLOR LT. YELLOW (YELLOW); URINE GLUCOSE (Dip) NEGATIVE (NEGATIVE); URINE KETONES (Dip) NEGATIVE (NEGATIVE); URINE LEUKOCYTE ESTERASE (Dip) 1+ (NEGATIVE); URINE NITRITE (Dip) NEGATIVE (NEGATIVE); URINE TOTAL PROTEIN (Dip) TRACE (NEGATIVE); URINE UROBILINOGEN (Dip) 1.0 E.U./dL (0.1-1.0)
[2016-05-14 04:53] VITALS: BP 110/70; PULSE 61; RESP 16; TEMP 98.7
[2016-05-14 05:10] LABS: BACTERIA,URINE MODERATE; MUCUS,URINE MODERATE; SQUAMOUS EPITHELIAL CELL,UR MODERATE
== END 2016-05-14 04:55 | disposition home or self-care (01) ==
LOC: E/R 03:02
DX: R10.10 Upper abdominal pain, unspecified (principal); R11.2 Nausea with vomiting, unspecified; R40.2142 Coma scale, eyes open, spontaneous, at arrival to emergency department; R40.2362 Coma scale, best motor response, obeys commands, at arrival to emergency department; R40.2252 Coma scale, best verbal response, oriented, at arrival to emergency department
CPT/HCPCS: 36415; 74000; 80053; 81001; 83690; 85025; 87086; 96374; 96375; J2270; J2405; J2765; J7040; Z7502; 81003

== ENCOUNTER 2016-05-31 03:16 | Emergency (ER) | payer OTHER ==
[~2016-05-31] VITALS: Ht 157.5 cm; Wt 78.5 kg
[~2016-05-31 03:16] MED LIST changes: +CEPH-443 PO; +DOCU-144 PO; +TRAM50TA2 PO
[2016-05-31 03:22] VITALS: Ht 157.5 cm; Wt 78.5 kg
--- NOTE | 2016-05-31 03:28 | ERA ---
ER Documentation Chief Complaint Date/Time DATE: 05/31/16 TIME: 03:27 Chief Complaint epigastric abdominal pain HPI The patient is a 20-year-old female, presenting to the ER because of epigastric abdominal pain" abdominal pain radiated to the back, associated with vomiting that began today. She denies similar symptoms previously, denies fever, chills , neck pain, chest pain, dyspnea, dysuria, diarrhea. She does not smoke or drink Past medical/surgical history: None ROS All systems reviewed and are negative except as per history of present illness. Medications Home Meds Active Scripts Hydrocodone/Acetaminophen ([place] 5-325 Tablet) 1 Each Tablet, 1 TAB PO Q6H Y for PAIN, #7 TAB Prov:OMID TORRES MD 05/31/16 Tramadol HCl (Tramadol HCl) 50 Mg Tablet, 50 MG PO Q4 Y for PAIN, #20 TAB Prov:VIVIANE ELIZABETH 05/14/16 Cephalexin* (Keflex*) 500 Mg Capsule, 500 MG PO QID for 5 Days, CAP Prov:VIVIANE ELIZABETH 05/14/16 Docusate Sodium* (Colace*) 100 Mg Capsule, 100 MG PO TID, #30 CAP Prov:VIVIANE ELIZABETH 05/14/16 Reported Medications Multivit/Min/Fol Ac/Iron/Pren* ( S*) 1 Tab Tab, 1 TAB PO DAILY, TAB 02/27/16 Allergies Allergies: Coded Allergies: No Known Allergy (Unverified , 11/03/13) PMhx/Soc History of Surgery: No Anesthesia Reaction: No Hx Neurological Disorder: No Hx Respiratory Disorders: No Hx Cardiac Disorders: No Hx Psychiatric Problems: No Hx Miscellaneous Medical Probl: Yes (anxiety, 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 Head: Atraumatic. Eyes: Normal Conjunctiva. ENT: Normal External Ears, Nose and Mouth. Neck: Full range of motion. No meningismus. Resp: Clear to auscultation bilaterally. Cardio: Regular rate and rhythm, no murmurs. Abd: Soft, non distended, normal bowel sounds, moderate epigastric and upper quadrant tenderness, no rigidity, rebound, right lower quadrant, CVA tenderness Skin: No petechiae or rashes. Back: No midline or flank tenderness. Ext: No cyanosis, or edema. Neur: Awake and alert. No focal deficit Psych: Normal Mood and Affect. Result Diagram: 05/31/16 0354 05/31/16 0354 Results 24 hrs Laboratory Tests Test 05/31/16 03:54 05/31/16 04:53 05/31/16 05:32 White Blood Count 12.710^3/ul Red Blood Count 4.3310^6/ul Hemoglobin 10.7g/dl Hematocrit 34.9% Mean Corpuscular Volume 80.6fl Mean Corpuscular Hemoglobin 24.7pg Mean Corpuscular Hemoglobin Concent 30.7g/dl Red Cell Distribution Width 16.6% Platelet Count 40018^3/UL Mean Platelet Volume 9.9fl Neutrophils % 71.8% Lymphocytes % 20.3% Monocytes % 6.3% Eosinophils % 0.9% Basophils % 0.2% Nucleated Red Blood Cells % 0.0/100WBC Neutrophils # 9.210^3/ul Lymphocytes # 2.610^3/ul Monocytes # 0.810^3/ul Eosinophils # 0.110^3/ul Basophils # 0.010^3/ul Nucleated Red Blood Cells # 0.010^3/ul Sodium Level 144mmol/L Potassium Level 3.4mmol/L Chloride Level 102mmol/L Carbon Dioxide Level 27mmol/L Anion Gap 18 Blood Urea Nitrogen 11mg/dl Creatinine 0.66mg/dl Glucose Level 129mg/dl Calcium Level 8.9mg/dl Total Bilirubin 0.1mg/dl Direct Bilirubin 0.00mg/dl Indirect Bilirubin 0.1mg/dl Aspartate Amino Transf (AST/SGOT) 38IU/L Alanine Aminotransferase (ALT/SGPT) 32IU/L Alkaline Phosphatase 130IU/L Total Protein 7.5g/dl Albumin 4.0g/dl Globulin 3.50g/dl Albumin/Globulin Ratio 1.14 Lipase 173U/L Bedside Urine pH (LAB) 5.5 5.5 Bedside Urine Protein (LAB) Negative Trace Bedside Urine Glucose (UA) Negative Negative Bedside Urine Ketones (LAB) Trace Negative Bedside Urine Blood Negative Negative Bedside Urine Nitrite (LAB) Negative Negative Bedside Urine Leukocyte Esterase (L Negative Negative Current Medications Medications (Trade) Dose Ordered Sig/Noni Route PRN Reason Start Time Stop Time Status Last Admin Dose Admin Morphine Sulfate (morphine) 4 mg ONCE STAT IV 05/31/16 03:34 05/31/16 03:37 DC 05/31/16 04:16 Ondansetron HCl (Zofran Inj) 4 mg ONCE STAT IV 05/31/16 03:34 05/31/16 03:37 DC 05/31/16 04:16 Potassium Chloride (Klor-Con 20) 20 meq ONCE STAT PO 05/31/16 05:25 05/31/16 05:26 DC 05/31/16 05:35 Procedures/[place] [id number] Radiology Main Line: [phone] DIAGNOSTIC IMAGING REPORT Patient: SARITA GOSS : 1995 Age: 20 Sex: F MR #: [id number] DOS: 05/31/16 0334 Ordering MD: OMID TORRES MD Location: E/R Room/Bed: PROCEDURE: Abdominal ultrasound, limited. CLINICAL INDICATION: Abdominal pain. TECHNIQUE: Multiple real-time images were acquired of the patient's right upper abdomen utilizing a high resolution transducer. COMPARISON: None FINDINGS: The liver demonstrates normal echogenicity and size measuring 17.7 cm. There is no focal mass or intrahepatic biliary ductal dilatation. The portal vein is patent. The gallbladder is not distended. Multiple small echogenic gallstones are identified. There is focal tenderness over the gallbladder. There is no pericholecystic fluid or gallbladder wall thickening. The common bile duct measures 7.5 mm in maximal dimension. The visualized portions of the pancreas are unremarkable. No free fluid is identified. The right kidney is normal size and echogenicity measuring 10.4 cm. There is no focal renal mass identified. There are 2 echogenic foci within the kidney measuring 4 mm and 5 mm. There is no obstructive uropathy. The visualized abdominal aorta and vena cava are unremarkable. IMPRESSION: Cholelithiasis with positive sonographic Avilez's sign. There is no gallbladder wall thickening or pericholecystic fluid. Mildly dilated common bile duct measuring 7.5 mm. Right renal calculi. .Dontae Mascorro MD, MD Date Time Electronically viewed and signed by .Dontae Mascorro MD, on 05/31/2016 04:25 .T/ CC: OMID TORRES MD MEDICAL MAKING DECISION: The patient is a 20-year-old female, presenting with acute pericolic, acute hypokalemia. She was treated with 1 L normal saline for acute dehydration, potassium chloride 20 mEq p.o. for acute hyperkalemia, morphine 4 with IV for pain, Zofran 4 IV for nausea with good response. The differential diagnoses considered include but are not limited to cholelithiasis , cholecystitis, cystitis, pancreatitis, hepatitis, gastritis, peptic ulcer disease, gastric ulcer, appendicitis, diverticulitis, cholangitis, choledocholithiasis, partial small bowel obstruction. Departure Diagnosis: Primary Impression: Biliary colic Additional Impressions: Hypokalemia Dehydration Anemia Condition: Good Comments She was discharged with [place] I discussed the findings with the patient. I advised the patient to follow-up with the primary physician in about 1-2 days before to see a general surgeon for elective cholecystectomy, sooner if needed and return if any concern. OMID TORRES MD May 31, 2016 03:28
[2016-05-31] MEDS ORDERED: morphine 4 MG/ML VIAL IV STA (03:34)
[2016-05-31] MEDS ORDERED: ONDANSETRON 4 MG INJ IV STA (03:34)
[2016-05-31 04:07] LABS: ADD SCAN DIFF NO
[2016-05-31 04:17] LABS: BASOPHILS % 0.2 % (0.0-2.0); EOSINOPHILS # 0.1 10^3/ul (0.0-0.5); EOSINOPHILS % 0.9 % (0.0-7.0); HEMATOCRIT 34.9 % (37.0-47.0); HEMOGLOBIN 10.7 g/dl (12.0-16.0); LYMPHOCYTES # 2.6 10^3/ul (0.8-2.9); LYMPHOCYTES % 20.3 % (15.0-51.0); MEAN CORPUSCULAR HEMOGLOBIN 24.7 pg (29.0-33.0); MEAN CORPUSCULAR HGB CONC 30.7 g/dl (32.0-37.0); MEAN CORPUSCULAR VOLUME 80.6 fl (82.0-101.0); MEAN PLATELET VOLUME 9.9 fl (7.4-10.4); MONOCYTE # 0.8 10^3/ul (0.3-0.9); MONOCYTES % 6.3 % (0.0-11.0); NEUTROPHIL # 9.2 10^3/ul (1.6-7.5); NEUTROPHILS % 71.8 % (39.0-77.0); PLATELET COUNT 367 10^3/UL (140-415); POTASSIUM 3.4 mmol/L (3.5-5.1); RED BLOOD COUNT 4.33 10^6/ul (4.20-5.40); RED CELL DISTRIBUTION WIDTH 16.6 % (11.5-14.5); WHITE BLOOD COUNT 12.7 10^3/ul (4.8-10.8)
[2016-05-31 04:19] LABS: CREATININE 0.66 mg/dl (0.44-1.00)
[2016-05-31 04:20] LABS: ALBUMIN/GLOBULIN RATIO 1.14; BILIRUBIN,INDIRECT 0.1 mg/dl (0-1.1); BILIRUBIN,TOTAL 0.1 mg/dl (0.2-1.3); CALCIUM 8.9 mg/dl (8.4-10.2); TOTAL PROTEIN 7.5 g/dl (6.1-8.1)
--- NOTE | 2016-05-31 04:25 | RADRPT ---
PROCEDURE: Abdominal ultrasound, limited. CLINICAL INDICATION: Abdominal pain. TECHNIQUE: Multiple real-time images were acquired of the patient's right upper abdomen utilizing a high resolution transducer. COMPARISON: None FINDINGS: The liver demonstrates normal echogenicity and size measuring 17.7 cm. There is no focal mass or in trahepatic biliary ductal dilatation. The portal vein is patent. The gallbladder is not distended. Multiple small echogenic gallstones are identified. There is focal tenderness over the gallbladde r. There is no pericholecystic fluid or gallbladder wall thickening. The common bile duct measures 7.5 mm in maximal dimension. The visualized portions of the pancreas are unremarkable. No free fl uid is identified. The right kidney is normal size and echogenicity measuring 10.4 cm. There is no focal renal mass id entified. There are 2 echogenic foci within the kidney measuring 4 mm and 5 mm. There is no obstru ctive uropathy. The visualized abdominal aorta and vena cava are unremarkable. IMPRESSION: Cholelithiasis with positive sonographic Avilez's sign. There is no gallbladder wall thickening or pericholecystic fluid. Mildly dilated common bile duct measuring 7.5 mm. Right renal calculi. .Dontae Mascorro MD, Date Time Electronically viewed and signed by .Dontae Mascorro MD, MD on 05/31/2016 04:25 .T/
[2016-05-31 04:55] LABS: URINE BLOOD (Dip) POC Negative (NEGATIVE)
[2016-05-31] MEDS ORDERED: POTASSIUM CHLORIDE (SR) 20 MEQ TAB PO STA (05:25)
[2016-05-31] MEDS ORDERED: HYDR-906 PO (05:27)
[2016-05-31 05:34] LABS: URINE BLOOD (Dip) POC Negative (NEGATIVE)
[2016-05-31 05:40] VITALS: BP 108/69; PULSE 81; RESP 18
== END 2016-05-31 05:40 | disposition home or self-care (01) ==
LOC: E/R 03:16
DX: K80.50 Calculus of bile duct without cholangitis or cholecystitis without obstruction (principal); E87.6 Hypokalemia; E86.0 Dehydration; D64.9 Anemia, unspecified; R40.2142 Coma scale, eyes open, spontaneous, at arrival to emergency department; R40.2252 Coma scale, best verbal response, oriented, at arrival to emergency department; R40.2362 Coma scale, best motor response, obeys commands, at arrival to emergency department; R11.10 Vomiting, unspecified; Z87.891 Personal history of nicotine dependence
CPT/HCPCS: 36415; 76705; 80053; 81003; 83690; 85025; 96374; 96375; J2270; J2405; Z7502; Z7610

== ENCOUNTER 2016-06-03 20:21 | Inpatient (IN) | payer OTHER ==
[~2016-06-03] VITALS: Ht 157.5 cm; Wt 79.5 kg
[~2016-06-03 20:21] MED LIST changes: +HYDR-906 PO
[2016-06-03 22:36] LABS: URINE BLOOD (Dip) POC Negative (NEGATIVE)
[2016-06-03] MEDS ORDERED: SOD CHLORIDE 0.9% 1,000 ML IV STA (23:00)
[2016-06-03] MEDS ORDERED: morphine 4 MG/ML VIAL IV STA (23:00)
[2016-06-03] MEDS ORDERED: ONDANSETRON 4 MG INJ IV STA (23:00)
--- NOTE | 2016-06-03 23:07 | ERD ---
ER Documentation Chief Complaint Date/Time DATE: 06/03/16 TIME: 23:05 Chief Complaint Pt reports norco not working for gallstone pain anymore HPI 20-year-old female presents here in emergency department for complaints of right lower abdominal pain for 4 days now, patient was seen here few days ago, was diagnosed to have gallbladder stones, patient was given [place] to go home with, patient is taking medication but with no relief. Patient described the pain as sharp pain, 8/10 scale, accompanied with noted vomiting, uncontrolled with [place], patient denies any fever or chills. Patient denies any flank pain. Patient denies any hematuria or dysuria. ROS All systems reviewed and are negative except as per history of present illness. Medications Home Meds Active Scripts Hydrocodone/Acetaminophen ([place] 5-325 Tablet) 1 Each Tablet, 1 TAB PO Q6H Y for PAIN, #7 TAB Prov:OMID TORRES MD 05/31/16 Tramadol HCl (Tramadol HCl) 50 Mg Tablet, 50 MG PO Q4 Y for PAIN, #20 TAB Prov:VIVIANE ELIZABETH 05/14/16 Cephalexin* (Keflex*) 500 Mg Capsule, 500 MG PO QID for 5 Days, CAP Prov:VIVIANE ELIZABETH 05/14/16 Docusate Sodium* (Colace*) 100 Mg Capsule, 100 MG PO TID, #30 CAP Prov:VIVIANE ELIZABETH 05/14/16 Reported Medications Multivit/Min/Fol Ac/Iron/Pren* ( S*) 1 Tab Tab, 1 TAB PO DAILY, TAB 02/27/16 Allergies Allergies: Coded Allergies: No Known Allergy (Unverified , 11/03/13) PMhx/Soc History of Surgery: No Anesthesia Reaction: No Hx Neurological Disorder: No Hx Respiratory Disorders: No Hx Cardiac Disorders: No Hx Psychiatric Problems: No Hx Miscellaneous Medical Probl: Yes (anxiety, 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 CHEST: Clear to auscultation bilaterally. There are no rales, wheezes or rhonchi. HEART: Regular rate and rhythm. No murmurs, clicks, rubs or gallops. No S3 or S4. ABDOMEN: Soft, nontender and nondistended. Good bowel sounds. No rebound or guarding. No gross peritonitis. No gross organomegaly or masses. Positive Avilez sign, negative McBurney's point tenderness.. BACK: No midline or flank tenderness. EXTREMITIES: Equal pulses bilaterally. There is no peripheral clubbing, cyanosis or edema. No focal swelling or erythema. Full range of motion. Grossly neurovascularly intact. NEURO: Alert and oriented. Cranial nerves 2-12 intact. Motor strength in all 4 extremities with 5/5 strength. Sensation grossly intact. Normal speech and gait. SKIN: There is no apparent rash or petechia. The skin is warm and dry. HEMATOLOGIC AND LYMPHATIC: There is no evidence of excessive bruising or lymphedema. No gross cervical, axillary, or inguinal lymphadenopathy. Result Diagram: 06/03/16233706/03/162337 Results 24 hrs Laboratory Tests Test 06/03/16 22:34 06/03/16 22:40 06/03/16 23:38 Bedside Urine pH (LAB) 6.5 Bedside Urine Protein (LAB) Negative Bedside Urine Glucose (UA) Negative Bedside Urine Ketones (LAB) Negative Bedside Urine Blood Negative Bedside Urine Nitrite (LAB) Negative Bedside Urine Leukocyte Esterase (L Trace Urine Color LT. YELLOW Urine Clarity CLEAR Urine pH 5.5 Urine Specific [place] <=1.005 Urine Ketones NEGATIVE Urine Nitrite NEGATIVE Urine Bilirubin NEGATIVE Urine Urobilinogen 0.2 E.U./dL Urine Leukocyte Esterase TRACE Urine Microscopic RBC NONE SEEN/HPF Urine Microscopic WBC 2-5/HPF Urine Squamous Epithelial Cells MANY Urine Bacteria OCCASIONAL Urine Hemoglobin NEGATIVE Urine Glucose NEGATIVE% Urine Total Protein NEGATIVE White Blood Count 11.110^3/ul Red Blood Count 4.4810^6/ul Hemoglobin 11.0g/dl Hematocrit 36.1% Mean Corpuscular Volume 80.6fl Mean Corpuscular Hemoglobin 24.6pg Mean Corpuscular Hemoglobin Concent 30.5g/dl Red Cell Distribution Width 17.0% Platelet Count 54508^3/UL Mean Platelet Volume 10.9fl Neutrophils % 81.8% Lymphocytes % 11.2% Monocytes % 6.1% Eosinophils % 0.3% Basophils % 0.2% Nucleated Red Blood Cells % 0.0/100WBC Neutrophils # 9.110^3/ul Lymphocytes # 1.310^3/ul Monocytes # 0.710^3/ul Eosinophils # 0.010^3/ul Basophils # 0.010^3/ul Nucleated Red Blood Cells # 0.010^3/ul Sodium Level 138mmol/L Potassium Level 4.3mmol/L Chloride Level 101mmol/L Carbon Dioxide Level 27mmol/L Anion Gap 14 Blood Urea Nitrogen 12mg/dl Creatinine 0.61mg/dl Glucose Level 100mg/dl Calcium Level 9.4mg/dl Total Bilirubin 0.1mg/dl Direct Bilirubin 0.00mg/dl Indirect Bilirubin 0.1mg/dl Aspartate Amino Transf (AST/SGOT) 62IU/L Alanine Aminotransferase (ALT/SGPT) 54IU/L Alkaline Phosphatase 149IU/L Total Protein 8.2g/dl Albumin 4.5g/dl Globulin 3.70g/dl Albumin/Globulin Ratio 1.21 Lipase 173U/L Current Medications Medications (Trade) Dose Ordered Sig/Noni Route PRN Reason Start Time Stop Time Status Last Admin Dose Admin Sodium Chloride (NS) 1,000 ml @ 1,000 mls/hr Q1H STAT IV 06/03/16 23:00 06/03/16 23:59 DC 06/03/16 23:46 Morphine Sulfate (morphine) 4 mg ONCE STAT IV 06/03/16 23:00 06/03/16 23:02 DC 06/03/16 23:46 Ondansetron HCl (Zofran Inj) 4 mg ONCE STAT IV 06/03/16 23:00 06/03/16 23:02 DC 06/03/16 23:46 Normal saline IV bolus was given here in emergency department for rehydration, patient tolerated IV fluids.Patient was given medication for pain here in emergency department, after treatment, patient verbalized feeling much better. Patient's pain is improved.Patient was given Zofran here in the emergency department. After treatment, patient was able to tolerate po fluids here in the emergency department without any vomiting. There is no signs and symptoms of dehydration. PROCEDURE: US right upper quadrant CLINICAL INDICATION: Abdominal pain TECHNIQUE: Multiple real-time images were acquired of the patient's right upper abdomen utilizing a high resolution transducer. COMPARISON: 05/31/2016 FINDINGS: Liver: Normal in size, contour and echogenicity. The maximum dimension estimated at 16.7 cm . Gallbladder: Multiple mobile echogenic foci with distal acoustic shadowing are present. . There is no evidence of gallbladder wall thickening or pericholecystic fluid. A positive sonographic Avilez's sign is reported. Common bile duct: Dilated; 7.3 mm. There is no evidence for choledocholithiasis. Right Kidney: Normal in size and echogenicity; maximum length measured at approximately 10.6 cm. Punctate shadowing nonobstructive calculus is again noted estimated at 4 mm Pancreas: Visualized portions are normal. The tail is partially obscured by bowel gas. RPTAT:HJJR IMPRESSION: 1. Cholelithiasis, elicitation of a sonographic Avilez's sign and common bile duct dilatation cannot exclude acute cholecystitis without gallbladder wall thickening or pericholecystic fluid. Consider follow-up evaluation with a nuclear medicine HIDA scan. 2. Nonobstructive 4 mm right intrarenal calculus. Physician Whitney Date Time Electronically viewed and signed by Physician Whitney on 06/03/2016 23:53 JR/ CC: JANE CASTILLO NP Procedures/MDM Medical Decision Making: Patient has positive Avilez's sign and dilatation of bile duct most likely consistent with acute cholecystitis, considering patient' s pain is uncontrolled, patient will be admitted to the hospital for further evaluation, possible surgical evaluation. I discussed this case with my attending physician, Dr. Jacobs, will facilitate the patient's admission to the hospital. Patient is stable at this time. Departure Diagnosis: Primary Impression: Cholecystitis Condition: Fair JANE CASTILLO NP Jun 03, 2016 23:07
--- NOTE | 2016-06-03 23:54 | RADRPT ---
PROCEDURE: US right upper quadrant CLINICAL INDICATION: Abdominal pain TECHNIQUE: Multiple real-time images were acquired of the patient's right upper abdomen utilizing a high resolution transducer. COMPARISON: 05/31/2016 FINDINGS: Liver: Normal in size, contour and echogenicity. The maximum dimension estimated at 16.7 cm . Gallbladder: Multiple mobile echogenic foci with distal acoustic shadowing are present. . There is no evidence of gallbladder wall thickening or pericholecystic fluid. A positive sonographic Avilez' s sign is reported. Common bile duct: Dilated; 7.3 mm. There is no evidence for choledocholithiasis. Right Kidney: Normal in size and echogenicity; maximum length measured at approximately 10.6 cm. Pu nctate shadowing nonobstructive calculus is again noted estimated at 4 mm Pancreas: Visualized portions are normal. The tail is partially obscured by bowel gas. RPTAT:HJJR IMPRESSION: 1. Cholelithiasis, elicitation of a sonographic Avilez's sign and common bile duct dilatation cannot exclude acute cholecystitis without gallbladder wall thickening or pericholecystic fluid. Consider follow-up evaluation with a nuclear medicine HIDA scan. 2. Nonobstructive 4 mm right intrarenal calculus. Physician Whitney Date Time Electronically viewed and signed by Physician Whitney on 06/03/2016 23:53 /
[2016-06-04] VITALS (16 sets, daily range): BP systolic 103–124; BP diastolic 52–75; PULSE 70–92; RESP 13–20; TEMP 97.7; Ht 157.5 cm; Wt 79.5 kg
[2016-06-04 00:58] LABS: ADD SCAN DIFF NO
[2016-06-04 01:01] LABS: BASOPHILS % 0.2 % (0.0-2.0); EOSINOPHILS % 0.3 % (0.0-7.0); HEMATOCRIT 36.1 % (37.0-47.0); LYMPHOCYTES # 1.3 10^3/ul (0.8-2.9); LYMPHOCYTES % 11.2 % (15.0-51.0); MEAN CORPUSCULAR HEMOGLOBIN 24.6 pg (29.0-33.0); MEAN CORPUSCULAR HGB CONC 30.5 g/dl (32.0-37.0); MEAN CORPUSCULAR VOLUME 80.6 fl (82.0-101.0); MEAN PLATELET VOLUME 10.9 fl (7.4-10.4); MONOCYTE # 0.7 10^3/ul (0.3-0.9); MONOCYTES % 6.1 % (0.0-11.0); NEUTROPHIL # 9.1 10^3/ul (1.6-7.5); NEUTROPHILS % 81.8 % (39.0-77.0); PLATELET COUNT 394 10^3/UL (140-415); RED BLOOD COUNT 4.48 10^6/ul (4.20-5.40); WHITE BLOOD COUNT 11.1 10^3/ul (4.8-10.8)
[2016-06-04 01:10] LABS: ALBUMIN 4.5 g/dl (3.3-4.9); POTASSIUM 4.3 mmol/L (3.5-5.1)
[2016-06-04 01:11] LABS: ADD UMIC YES; URINE BILIRUBIN (Dip) NEGATIVE (NEGATIVE); URINE BLOOD (Dip) NEGATIVE (NEGATIVE); URINE COLOR LT. YELLOW (YELLOW); URINE GLUCOSE (Dip) NEGATIVE (NEGATIVE); URINE KETONES (Dip) NEGATIVE (NEGATIVE); URINE LEUKOCYTE ESTERASE (Dip) TRACE (NEGATIVE); URINE NITRITE (Dip) NEGATIVE (NEGATIVE); URINE TOTAL PROTEIN (Dip) NEGATIVE (NEGATIVE); URINE UROBILINOGEN (Dip) 0.2 E.U./dL (0.1-1.0)
[2016-06-04 01:12] LABS: BILIRUBIN,INDIRECT 0.1 mg/dl (0-1.1); BILIRUBIN,TOTAL 0.1 mg/dl (0.2-1.3); CREATININE 0.61 mg/dl (0.44-1.00)
[2016-06-04 01:13] LABS: ALBUMIN/GLOBULIN RATIO 1.21; CALCIUM 9.4 mg/dl (8.4-10.2); TOTAL PROTEIN 8.2 g/dl (6.1-8.1)
[2016-06-04 01:29] LABS: BACTERIA,URINE OCCASIONAL; SQUAMOUS EPITHELIAL CELL,UR MANY; URINE RBCS NONE SEEN /HPF (0)
[2016-06-04] MEDS ORDERED: ONDANSETRON 4 MG INJ IV PRN ×3 (06:30→14:00)
[2016-06-04] MEDS ORDERED: ACETAMINOPHEN 325 MG TAB PO PRN (06:30)
[2016-06-04] MEDS: PIPER-TAZO 3.375 GM IV (PMX) 100 ML IVPB SCH ×3 (06:40→21:33)
[2016-06-04] MEDS: DEXTROSE 5%-0.9% NACL 1,000 ML IV SCH ×2 (06:40→20:12)
[2016-06-04] MEDS: PANTOPRAZOLE 40 MG INJ IV SCH (06:40)
[2016-06-04] MEDS ORDERED: SUCCINYLCHOLINE CHLORIDE 100 MG/5 ML SYG IV ONE (07:00)
[2016-06-04] MEDS ORDERED: HYDROCODONE/APAP (5/325) TAB PO PRN ×2 (09:30)
[2016-06-04] MEDS ORDERED: MAGNESIUM HYDROXIDE 30ML CUP PO PRN (09:30)
[2016-06-04] MEDS ORDERED: BISACODYL 10 MG SUPP PR PRN (09:30)
[2016-06-04] MEDS ORDERED: DOCUSATE SODIUM 100 MG CAP PO PRN (09:30)
[2016-06-04] MEDS ORDERED: NACL 0.9% 3 ML SYG IV SCH (09:30)
[2016-06-04] MEDS: morphine 2 MG INJ IV PRN (10:27)
--- NOTE | 2016-06-04 11:20 | HP ---
DATE OF ADMISSION: 06/04/2016 PRIMARY CARE PHYSICIAN: Unknown. ENTERPRISE ANALYST ON THIS ADMISSION: Dr. Soriano from General Surgery. CHIEF COMPLAINT ON ADMISSION: Abdominal pain. HISTORY OF PRESENT ILLNESS: This is a 20-year-old female who gave approximately a month ago. She presented first in the emergency department 4 days ago with complaint of upper abdominal pain. She is telling me at that time she was diagnosed with gallstones disease according to the patient a nd a biliary colic. She was discharged with [place] at that time and to follow up with her primary ca re physician and outpatient surgery for elective cholecystectomy. The patient did not followup. Randa clayton represented again in the emergency department 4 days later, last night with complaints of abdomina l pain. She had again another gallbladder ultrasound done, which is showing cholelithiasis, Avilez signs during the exam, but common bile duct and gallbladder was not fully evaluated. Her symptoms a nd presentation in previous evaluation in the ER seems to be pointing to cholecystitis versus choled ocholithiasis versus biliary colic. Dr. Soriano was consulted overnight, according to the emergency department physician, and the patient seems to be scheduled for a procedure today. I will contact Jay Soriano and see if he wants a HIDA scan prior to the procedure versus just proceed with the laparo scopic cholecystectomy based on her symptoms and the gallbladder ultrasound findings. The patient d enies any fevers or chills. She reports nausea and vomiting yesterday along with the pain. She rep orts that the pain is epigastric, radiating to her right upper quadrant, but also on the left upper quadrant area. On exam, she does have more significant tenderness to palpation on the right upper q uadrant. Her white blood cell count is slightly elevated on presentation, she was started on Zosyn. She is currently n.p.o. except for medications, awaiting surgical evaluation. ALLERGIES: NO KNOWN ALLERGIES. PAST MEDICAL HISTORY: 1. Biliary colic, recently diagnosed. 2. Status post vaginal delivery a month ago. PAST SURGICAL HISTORY: None. SOCIAL HISTORY: The patient does not smoke or drink alcohol. She lives with family. OUTPATIENT MEDICATIONS: Includin. Keflex 500 mg p.o. q.i.d. 2. [place] 5/325 one tab p.o. q.6h. p.r.n. pain. 3. Tramadol 50 mg p.o. q.4h. p.r.n. pain. 4. Colace 100 mg p.o. t.i.d. 5. vitamin 1 tab p.o. daily. The patient is not taking most of her medications currently, only the vitamins. PHYSICAL EXAMINATION: VITAL SIGNS: Temperature is 98.5, heart rate of 84, respiratory rate of 18, blood pressure 103/52. Patient is satting 96% on room air. GENERAL: She is alert and oriented x4. She is in no acute distress currently. HEENT: Pupils are equally round and reactive to light. Extraocular muscles are intact. Anicteric sclerae. NECK: No JVD, no thyromegaly noted. HEART: Regular rate and rhythm. No murmur, rubs, or gallops. LUNGS: Clear to auscultation bilaterally. ABDOMEN: Soft, nondistended. She does have tenderness to palpation epigastric, right upper quadran t, more significant than the left upper quadrant. EXTREMITIES: No edema, clubbing or cyanosis. NEUROLOGIC: Intact. LABORATORY DATA: White blood cell count 11.1, hemoglobin 11.0, hematocrit 36.1, platelet count of 3 94. Chemistry with a sodium of 138, potassium 4.3, chloride 101, bicarbonate 27, BUN 12, creatinine 0.61, glucose of 100. Total bilirubin 0.1, AST 62, ALT 54, alkaline phosphatase 149, total protein 8.2, albumin 4.5, lipase of 173. Urinalysis is fairly negative with only trace leukocyte esterase. test is pending. PT, PTT and INR are pending. RADIOLOGICAL DATA: Chest x-ray pending. Gallbladder ultrasound done yesterday showed cholelithiasis, mainly. ASSESSMENT AND PLAN: This is a 20-year-old female with: 1. Abdominal pain, upper quadrant, mainly right upper quadrant consistent with possibly acute denise cystitis versus biliary colic versus choledocholithiasis. The patient does have gallstone disease. This is her third presentation with abdominal pain now. Surgical evaluation with Dr. Soriano and annette ssible laparoscopic cholecystectomy for today. She has been n.p.o., IV fluids are on board. 2. Prophylaxis: Sequential compression devices to lower extremity for DVT prophylaxis. Proton pum p inhibitors for GI prophylaxis. DISPOSITION: Surgical evaluation pending for possible laparoscopic cholecystectomy. Dictated By: ARTIE BROWN/FELIX Conf#: [id number] DID#: [id number]
[2016-06-04 12:04] LABS: PROTIME 13.2 Sec (12.2-14.2)
[2016-06-04 12:05] LABS: PARTIAL THROMBOPLASTIN TIME 26.4 Sec (25.0-35.0)
[2016-06-04] MEDS ORDERED: LIDOCAINE 2% (SDV) 5 ML INJ ONE (12:27)
[2016-06-04] MEDS ORDERED: PROPOFOL 0 ML ONE (12:27)
[2016-06-04] MEDS ORDERED: ROCURONIUM 50 MG INJ ONE (12:27)
[2016-06-04] MEDS ORDERED: NEOSTIGMINE 3 MG/3 ML SYRINGE ONE (12:27)
[2016-06-04] MEDS ORDERED: GLYCOPYRROLATE 0.4 MG INJ ONE (12:27)
[2016-06-04] MEDS ORDERED: FENTAnyl 50 MCG/ML VIAL ONE (12:28)
[2016-06-04] MEDS ORDERED: BUPIVACAINE 0.25%/EPI (SDV) 30 ML INJ ONE (12:28)
[2016-06-04] MEDS ORDERED: MIDAZOLAM 1 MG/ML 2 ML INJ ONE ×2 (12:28)
[2016-06-04] MEDS ORDERED: PROPOFOL 20 ML ONE (12:29)
[2016-06-04] MEDS ORDERED: LIDOCAINE 100 MG SYRINGE ONE (12:29)
[2016-06-04] MEDS ORDERED: ONDANSETRON 4 MG INJ ONE (12:37)
[2016-06-04] MEDS ORDERED: HYDROmorphONE (0.2 MG/ML) 10ML SYG IV PRN ×3 (13:00)
[2016-06-04] MEDS ORDERED: MIDAZOLAM 1 MG/ML 2 ML INJ IV PRN (13:00)
[2016-06-04] MEDS ORDERED: FENTAnyl 50 MCG/ML VIAL IV PRN ×2 (13:00)
[2016-06-04] MEDS ORDERED: morphine (1 MG/ML) 10ML SYRINGE IV PRN ×3 (13:00)
[2016-06-04] MEDS ORDERED: DIPHENHYDRAMINE 50 MG INJ IV PRN (13:00)
[2016-06-04] MEDS ORDERED: ATROPINE 1 MG/10 ML SYRINGE IV PRN (13:00)
[2016-06-04] MEDS ORDERED: MEPERIDINE 25 MG INJ IV PRN (13:00)
[2016-06-04] MEDS ORDERED: OXYCODONE/ACETAMINOPHEN (5/325) TAB PO PRN ×4 (13:00→14:00)
[2016-06-04] MEDS ORDERED: EPHEDrine SULFATE 50 MG/5 ML SYG IV PRN (13:00)
[2016-06-04] MEDS ORDERED: LABETALOL HCL 20MG INJ IV PRN (13:00)
[2016-06-04] MEDS ORDERED: hydrALAzine 20 MG INJ IV PRN (13:00)
[2016-06-04] MEDS ORDERED: LABETALOL HCL 20MG INJ ONE (13:38)
[2016-06-04] MEDS ORDERED: morphine 2 MG INJ IV PRN (14:00)
--- NOTE | 2016-06-04 14:01 | HP ---
DATE OF ADMISSION: 06/04/2016 TYPE OF CONSULTATION: Surgical. REASON FOR CONSULTATION: Acute cholecystitis. HISTORY OF PRESENT ILLNESS: The patient is a 20-year-old female who has known of gallstones for at least several months. She is now 1 month . She presented to the emergency room with cheri re midepigastric and right upper quadrant abdominal pain. This was 4 days ago. She was treated and released, but returned last night with severe midepigastric abdominal pain and elevated white blood cell count. Imaging was compatible with acute cholecystitis. Surgical consultation was requested in regards to laparoscopic cholecystectomy. She has had no fevers, chills or jaundice. PAST MEDICAL HISTORY: No previous hospitalizations other than child and with chaim yao evaluations in the emergency room for biliary colic. REVIEW OF SYSTEMS: HEAD, EARS, EYES, NOSE AND THROAT: Unremarkable. PULMONARY: No history of pneumonia or shortness of breath. CARDIAC: No history of chest pain or arrhythmia. ABDOMEN: As in the HPI. EXTREMITIES: Unremarkable. MEDICATIONS: 1. [place]. 2. Tramadol. 3. Keflex. 4. Colace. ALLERGIES: NONE. PHYSICAL EXAMINATION: GENERAL: The patient is a slightly overweight 20-year-old female in no acute distress. HEAD, EARS, EYES, NOSE, THROAT: Within normal limits. Sclerae are anicteric. LUNGS: Clear. HEART: Regular rhythm. ABDOMEN: Tender in the right upper quadrant with positive Avilez sign. EXTREMITIES: Unremarkable. LABORATORY DATA: Hematocrit is 36 with a white count of 11,100. BUN, glucose, electrolytes are unr emarkable. LFTs are normal with the exception of an alkaline phosphatase of 149. test ne gative. IMPRESSION: This patient has acute cholecystitis and will be benefited by laparoscopic cholecystect [place]. I have discussed the procedure, outcomes, indications, alternatives and risks in detail with t he patient who has an excellent understanding of the nature of her situation and agrees to the propo sed plan of therapy as outlined. Dictated By: NOBLE SWARTZ/FELIX Conf#: [id number] DID#: [id number]
--- NOTE | 2016-06-04 14:37 | OPR ---
DATE OF OPERATION: 06/04/2016 PREOPERATIVE DIAGNOSIS: Acute cholecystitis. POSTOPERATIVE DIAGNOSIS: Acute cholecystitis. PROCEDURE: Laparoscopic cholecystectomy. SURGEON: Noble Soriano MD ANESTHESIA: General. ANESTHESIOLOGIST: Abram Salmon MD OPERATIVE REPORT: After satisfactory general anesthesia was achieved, the abdomen was prepped and d raped in the usual fashion. The abdomen was insufflated with carbon dioxide through an umbilical Ve ress needle to 15 mmHg pressure. The Veress needle was removed and the umbilical incision extended to 5 mm, through which a 5 mm trocar was placed. A 5 mm 0-degree lens was placed. Laparoscopy show ed the gallbladder to be distended but not thickened or edematous. Under direct visualization, a 10 mm epigastric trocar was placed as well as two 5 mm right lateral abdominal trocars. The dome of the gallbladder was grasped and retracted superiorly. Stephanie's pouch was retracted in feriorly. The hepatoduodenal ligament was carefully dissected between the gallbladder and the very well visualized common duct. The cystic duct was dissected circumferentially then triply hemoclippe d and divided high at the junction of the gallbladder and cystic duct. The cystic artery was identi fied immediately posteriorly. This was triply hemoclipped and divided between clips. The gallbladd er was then dissected from below using electrocautery dissection and placed fully intact into an End oCatch, removed via the epigastric route. Hemostasis was total, irrigant returned clear. The abdomen was then desufflated and the trocars were removed. The fascia of the epigastrium was cl osed with a single suture of 0 Vicryl. The skin punctures were infiltrated with 30 mL of 0.25% Raudel arsenio with epinephrine and closed with joyce. Operative blood loss less than 10 mL. Sponge and ne edle counts reported as correct x2. The patient tolerated the procedure well and without incident o r complication. Dictated By: NOBLE SWARTZ/FELIX Conf#: [id number] DID#: [id number]
[2016-06-05] MEDS: DEXTROSE 5%-0.9% NACL 1,000 ML IV SCH (02:30)
[2016-06-05 05:16] LABS: ADD SCAN DIFF NO
[2016-06-05 05:26] LABS: BASOPHILS % 0.2 % (0.0-2.0); EOSINOPHILS # 0.1 10^3/ul (0.0-0.5); EOSINOPHILS % 0.8 % (0.0-7.0); HEMATOCRIT 32.3 % (37.0-47.0); HEMOGLOBIN 9.9 g/dl (12.0-16.0); LYMPHOCYTES # 3.4 10^3/ul (0.8-2.9); MEAN CORPUSCULAR HEMOGLOBIN 24.5 pg (29.0-33.0); MEAN CORPUSCULAR HGB CONC 30.7 g/dl (32.0-37.0); MEAN PLATELET VOLUME 10.3 fl (7.4-10.4); MONOCYTE # 0.7 10^3/ul (0.3-0.9); MONOCYTES % 6.9 % (0.0-11.0); NEUTROPHIL # 5.3 10^3/ul (1.6-7.5); NEUTROPHILS % 55.7 % (39.0-77.0); PLATELET COUNT 388 10^3/UL (140-415); RED BLOOD COUNT 4.04 10^6/ul (4.20-5.40); RED CELL DISTRIBUTION WIDTH 17.3 % (11.5-14.5); WHITE BLOOD COUNT 9.5 10^3/ul (4.8-10.8)
[2016-06-05 05:41] LABS: ALBUMIN 3.3 g/dl (3.3-4.9)
[2016-06-05 05:42] LABS: POTASSIUM 3.4 mmol/L (3.5-5.1)
[2016-06-05 05:44] LABS: ALBUMIN/GLOBULIN RATIO 1.1; BILIRUBIN,INDIRECT 0.3 mg/dl (0-1.1); BILIRUBIN,TOTAL 0.3 mg/dl (0.2-1.3); CREATININE 0.66 mg/dl (0.44-1.00); TOTAL PROTEIN 6.3 g/dl (6.1-8.1)
[2016-06-05 05:45] LABS: CALCIUM 8.1 mg/dl (8.4-10.2); PHOSPHORUS 4.6 mg/dl (2.5-4.9)
[2016-06-05] MEDS: PIPER-TAZO 3.375 GM IV (PMX) 100 ML IVPB SCH (05:49)
[2016-06-05] MEDS: PANTOPRAZOLE 40 MG INJ IV SCH (05:49)
[2016-06-05] MEDS: morphine 2 MG INJ IV PRN (06:48)
[2016-06-05 08:01] VITALS: BP 101/56; RESP 18
--- NOTE | 2016-06-05 08:06 | PN ---
DATE: 06/05/2016 Postoperative day #1. The patient is markedly symptomatically improved. Her abdominal exam is benign and her puncture site s are clean and intact. The patient's hematocrit is 32.3. Leukocytosis has resolved, with a white co unt of 9,500. LFTs are normal. IMPRESSION: Excellent recovery. PLAN: The patient can be discharged today. I have left the patient a prescription for [place] and Ke flex and will see the patient in 1 weeks' time for office followup and staple removal. Dictated By: NOBLE SWARTZ/FELIX Conf#: [id number] DID#: [id number]
--- NOTE | 2016-06-05 10:56 | PN ---
Date/Time of Note Date/Time of Note DATE: 06/05/16 TIME: 10:45 Assessment/Plan VTE Prophylaxis VTE Prophylaxis Intervention: ambulation, SCD's Lines/Catheters IV Catheter Type (from Nrsg): Peripheral IV Assessment/Plan Assessment/Plan 20-year-old female with: 1. Acute cholecystitis, POD#1 s/p Lap Tiana Tolerating po Appreciate recs from Dr Soriano, Ok to d/c home and follow up in [address] Soriano DISPOSITION: D/c home today and follow up with PCP within [address] Soriano in 1 week. Subjective 24 Hr Interval Summary Free Text/Dictation Patient doing Well POD#1 No complaints today and appreciate recommendations from Dr Soriano D/c home today Exam/Review of Systems Vital Signs Vitals Vital Signs Date Time Temp Pulse Resp B/P Pulse Ox O2 Delivery O2 Flow Rate FiO2 06/05/16 08:01 97.8 90 18 101/56 99 06/04/16 15:13 Room Air Intake and Output 06/04/16 06/04/16 06/05/16 15:00 23:00 07:00 Intake Total 1300 ml 300 ml 1150 ml Output Total 10 ml 700 ml Balance 1290 ml -400 ml 1150 ml Exam Constitutional: alert, oriented, well developed Respiratory: clear to auscultation, normal air movement Cardiovascular: nl pulses, regular rate and rhythm Gastrointestinal: non-tender, soft Musculoskeletal: nl extremities to inspection Extremities: normal pulses Neurological: [employer] II-XII intact, nl mental status, nl speech, nl strength Results Result Diagram: 06/05/16 0440 06/05/16 0440 Results 24 hrs Laboratory Tests Test 06/04/16 11:00 06/05/16 04:40 Prothrombin Time 13.2 Prothrombin Time Ratio 1.0 INR International Normalized Ratio 1.00 Activated Partial Thromboplast Time 26.4 White Blood Count 9.5 Red Blood Count 4.04 L Hemoglobin 9.9 L Hematocrit 32.3 L Mean Corpuscular Volume 80.0 L Mean Corpuscular Hemoglobin 24.5 L Mean Corpuscular Hemoglobin Concent 30.7 L Red Cell Distribution Width 17.3 H Platelet Count 388 Mean Platelet Volume 10.3 Neutrophils % 55.7 Lymphocytes % 36.0 Monocytes % 6.9 Eosinophils % 0.8 Basophils % 0.2 Nucleated Red Blood Cells % 0.0 Neutrophils # 5.3 Lymphocytes # 3.4 H Monocytes # 0.7 Eosinophils # 0.1 Basophils # 0.0 Nucleated Red Blood Cells # 0.0 Sodium Level 140 Potassium Level 3.4 L Chloride Level 107 Carbon Dioxide Level 25 Anion Gap 11 Blood Urea Nitrogen 4 L Creatinine 0.66 Glucose Level 101 Hemoglobin A1c 4.8 Calcium Level 8.1 L Phosphorus Level 4.6 Total Bilirubin 0.3 Direct Bilirubin 0.00 Indirect Bilirubin 0.3 Aspartate Amino Transf (AST/SGOT) 39 Alanine Aminotransferase (ALT/SGPT) 50 Alkaline Phosphatase 117 Total Protein 6.3 # Albumin 3.3 # Globulin 3.00 Albumin/Globulin Ratio 1.10 Medications Medications Current Medications Miscellaneous Information FLU VACCINE PREVIOU... NOTE PRN XX NOTE; Start at 05:00 Dextrose/Sodium Chloride (D5-NS) 1,000 ml @ 100 mls/hr Q10H IV Last administered on 06/04/16 20:12; Admin Dose 100 MLS/HR; Start 06/04/16 at 06:30 Acetaminophen (Tylenol Tab) 650 mg Q6H PRN PO PAIN AND OR ELEVATED TEMP; Start 06/04/16 at 06:30 Ondansetron HCl 4 mg 4 mg Q4H PRN IV NAUSEA AND/OR VOMITING; Start 06/04/16 at 06:30 Piperacillin Sod/ Tazobactam Sod (Zosyn 3.375gm/ 100 ml (Pmx)) 100 ml @ 200 mls /hr Q8 IVPB Last administered on 06/05/16 05:49; Admin Dose 200 MLS/HR; Start 06/04/16 at 06:30 Pantoprazole (Protonix Iv) 40 mg DAILY@06 IV Last administered on 06/05/16 05: 49; Admin Dose 40 MG; Start 06/04/16 at 06:00 Morphine Sulfate (morphine) 2 mg Q3H PRN IV PAIN Last administered on 06:48; Admin Dose 2 MG; Start 06/04/16 at 09:30 Acetaminophen/ Hydrocodone Bitart ([place] (5/325)) 1 tab Q6H PRN PO MODERATE PAIN LEVEL 4-6 Last administered on 06/04/16 20:10; Admin Dose 1 TAB; Start at 09:30 Acetaminophen/ Hydrocodone Bitart ([place] (5/325)) 2 tab Q6H PRN PO SEVERE PAIN LEVEL 7-10; Start 06/04/16 at 09:30 Docusate Sodium (Colace) 100 mg Q12H PRN PO CONSTIPATION; Start 06/04/16 at 09: 30 Magnesium Hydroxide (Milk Of Mag) 30 ml DAILY PRN PO CONSTIPATION; Start at 09:30 Bisacodyl (Dulcolax Supp) [address] CONSTIPATION; Start 06/04/16 at 09 :30 Oxycodone/ Acetaminophen (Percocet (5/ 325)) 1 tab Q4H PRN PO MILD PAIN (1-3); Start 06/04/16 at 14:00 Oxycodone/ Acetaminophen (Percocet (5/ 325)) 2 tab Q4H PRN PO MODERATE PAIN (4- 6); Start 06/04/16 at 14:00 Morphine Sulfate (morphine) 2 mg ONCE PRN IV SEVERE PAIN LEVEL 7-10; Start 06/04 at 14:00 Ondansetron HCl (Zofran Inj) 4 mg Q6H PRN IV NAUSEA; Start 06/04/16 at 14:00 Procedures Procedures DATE OF OPERATION: 06/04/2016 PREOPERATIVE DIAGNOSIS: Acute cholecystitis. POSTOPERATIVE DIAGNOSIS: Acute cholecystitis. PROCEDURE: Laparoscopic cholecystectomy. SURGEON: Je Soriano MD ANESTHESIA: General. ANESTHESIOLOGIST: Abram Salmon MD OPERATIVE REPORT: After satisfactory general anesthesia was achieved, the abdomen was prepped and draped in the usual fashion. The abdomen was insufflated with carbon dioxide through an umbilical Veress needle to 15 mmHg pressure. The Veress needle was removed and the umbilical incision extended to 5 mm, through which a 5 mm trocar was placed. A 5 mm 0-degree lens was placed. Laparoscopy showed the gallbladder to be distended but not thickened or edematous. Under direct visualization, a 10 mm epigastric trocar was placed as well as two 5 mm right lateral abdominal trocars. The dome of the gallbladder was grasped and retracted superiorly. Stephanie's pouch was retracted inferiorly. The hepatoduodenal ligament was carefully dissected between the gallbladder and the very well visualized common duct. The cystic duct was dissected circumferentially then triply hemoclipped and divided high at the junction of the gallbladder and cystic duct. The cystic artery was identified immediately posteriorly. This was triply hemoclipped and divided between clips. The gallbladder was then dissected from below using electrocautery dissection and placed fully intact into an EndoCatch, removed via the epigastric route. Hemostasis was total, irrigant returned clear. The abdomen was then desufflated and the trocars were removed. The fascia of the epigastrium was closed with a single suture of 0 Vicryl. The skin punctures were infiltrated with 30 mL of 0.25% [place] with epinephrine and closed with joyce. Operative blood loss less than 10 mL. Sponge and needle counts reported as correct x2. The patient tolerated the procedure well and without incident or complication. ARTIE GRAY Jun 05, 2016 10:56
--- NOTE | 2016-06-05 10:58 | PDOCDIS ---
Discharge Instructions CONDITION Patient Condition: Stable HOME CARE INSTRUCTIONS: Diet Instructions: Regular ACTIVITY: Activity Restrictions: Slowly Increase Activity Rest between Activity Avoid heavy lifting Do not operate Machinery Do not operate Power Tool Avoid Heavy Housework Bathing Restrictions: Tub Bath FOLLOW UP/APPOINTMENTS Appointments Follow up with PCP within 1 week Follow up with Dr Soriano in 1 week ARTIE GRAY Jun 05, 2016 10:58
[2016-06-05] MEDS ORDERED: CEPH500C PO (11:24)
--- NOTE | 2016-06-05 18:12 | DS ---
DATE OF ADMISSION: 06/04/2016 DATE OF DISCHARGE: 06/05/2016 ADMITTING PHYSICIAN: Dr. Kerr DISCHARGING PHYSICIAN: Dr. Kerr MANAGER UTILIZATION DURING THIS ADMISSION: Dr. Soriano from General Surgery. CHIEF COMPLAINT ON ADMISSION: Abdominal pain. BRIEF HISTORY OF PRESENT ILLNESS: This is a 20-year-old female with a history of gallstone disease, recently diagnosed with biliary colic who presented to the emergency department with abdominal pain . She was diagnosed with probable acute cholecystitis based on her symptoms and a gallbladder ultra sound. Patient was admitted to a medical/surgical bed with general surgery consult. HOSPITAL COURSE: Dr. Soriano was consulted. He did take the patient to the OR for laparoscopic chol ecystectomy with findings confirming acute cholecystitis. The patient was maintained overnight on Z osyn. She is doing well this morning. She is tolerating p.o., ambulating, pain is controlled. She will be discharged home on Keflex and [place]. DISPOSITION: Discharge home. DISCHARGE CONDITION: Stable. DISCHARGE DIET: Regular diet. DISCHARGE ACTIVITY: Resume home activity, avoiding heavy lifting. FOLLOWUP: The patient is to follow up with Dr. Soriano in 1 week and follow up with primary care delores [facility] within 1 week. DISCHARGE DIAGNOSIS: Acute cholecystitis status post laparoscopic cholecystectomy, postoperative da y #1. DISCHARGE MEDICATIONS 1. Keflex 500 mg p.o. q.i.d. for 7 days. 2. [place] 5/325 one tab p.o. q.6h. p.r.n. pain. 3. vitamins to be continued at home. Dictated By: ARTIE BROWN/FELIX Conf#: [id number] DID#: [id number]
== END 2016-06-05 12:05 | disposition home or self-care (01) | DRG 419 ==
LOC: FTE 20:21 → MS1 06-04 02:54
PROVIDERS: ADMIT Internal Medicine; ATTEND Internal Medicine
PROC: 0FT44ZZ Resection of Gallbladder, Percutaneous Endoscopic Approach (ICD-10-PCS; principal; 2016-06-04 12:00)
DX: K81.0 Acute cholecystitis (principal)
CPT/HCPCS: 36415; 76705; 80053; 81001; 81003; 83036; 83690; 84100; 84703; 85025; 85610; 85730; 88304; 96374; 96375; C9113; J0330; J1170; J2001; J2250; J2270; J2405; J2543; J2710; J3010; J7030; J7042

== ENCOUNTER 2017-03-12 16:33 | Emergency (ER) | END 2017-03-12 19:21 | disposition home or self-care (01) ==

== ENCOUNTER 2017-06-26 09:10 | Emergency (ER) | END 2017-06-26 11:16 | disposition home or self-care (01) ==

== ENCOUNTER 2018-01-29 21:19 | Emergency (ER) | END 2018-01-29 23:11 | disposition home or self-care (01) ==

== ENCOUNTER 2018-03-09 18:32 | Emergency (ER) | payer OTHER ==
[~2018-03-09] VITALS: Ht 157.5 cm; Wt 82.5 kg
[~2018-03-09 18:32] MED LIST changes: +ALBU8.5H8 INH; +AMOX1TAB10 PO; +CEPH500C PO; +GUAI-227 PO; +HYDR-4011 PO; -HYDR-906 PO; +IBUP-1542 PO; +IBUP800T48 PO; +MUPI22OI2 TOP; +PRED20TA PO; +SULF1TAB31 PO
[2018-03-09 18:36] VITALS: Ht 157.5 cm; Wt 82.5 kg
[2018-03-09] MEDS ORDERED: LIDOCAINE/MYLANTA 40 ML BTL PO STA (18:48)
--- NOTE | 2018-03-09 18:52 | ERD ---
ER Documentation Chief Complaint Chief Complaint AP w/ diarrhea x6 days. no fever/vomiting/nausea HPI 22-year-old female, with history of laparoscopic cholecystectomy, presents to the emergency department, complaining of 6 days with persistent epigastric pain, associated with nausea and diarrhea. The diarrhea is described as watery, greenish, no blood or mucus, approximately x4 episodes per day. The epigastric pain is sharp, colicky, constant, according to the patient, the pain is very similar when she had gallstones. She denies fevers, no chills. ROS All systems reviewed and are negative except as per history of present illness. Medications Home Meds Active Scripts Prednisone* (Prednisone*) 20 Mg Tab, 60 MG PO DAILY for 4 Days, TAB Prov:SHAWNLOKESHSE 01/29/18 Ibuprofen* (Motrin*) 800 Mg Tab, 800 MG PO Q6H PRN for PAIN AND OR ELEVATED T EMP, #30 TAB Prov:SE DISLA 01/29/18 Guaifenesin-Dextromethorphan* (Robafen* DM) 100MG/10MG/5ML Liquid, 5 ML PO Q6H PRN for COUGH, #120 ML Prov:SE DISLA 01/29/18 Albuterol Sulfate* (Proair HFA*) 8.5 Gm Hfa.aer.ad, 2 PUFF INH Q4 PRN for S HORTNESS OF BREATH, #1 INHALER Prov:SE DISLA 01/29/18 Amoxicillin/Potassium Clav (Amox-Clav 875-125 mg Tablet) 875-125 mg Tab, 1 TAB PO BID for 10 Days, #20 TAB Prov:SE DISLA 01/29/18 Sulfamethoxazole/Trimethoprim* (Bactrim Ds* Tablet) 1 Each Tablet, 1 TAB PO BID, #14 TAB Prov:SOSA SHIRLEY-C 06/26/17 Cephalexin* (Keflex*) 500 Mg Capsule, 500 MG PO QID for 7 Days, CAP Prov:SOSA SHIRLEY-C 06/26/17 Ibuprofen* (Motrin*) 600 Mg Tab, 600 MG PO Q6, #30 TAB Prov:LAURA POWER 03/12/17 Mupirocin* (Bactroban*) 2% -22 Gram Oint...g., 1 APPLIC TOP BID for 7 Days, EA Prov:LAURA POWER 03/12/17 Cephalexin* (Keflex*) 500 Mg Capsule, 500 MG PO BID for 7 Days, CAP Prov:LAURA POWER C 03/12/17 Cephalexin* (Cephalexin*) 500 Mg Capsule, 500 MG PO QID for 7 Days, #28 CAP Prov:ISAACARTIE 06/05/16 Hydrocodone/Acetaminophen ([place] 5-325 Tablet) 1 Each Tablet, 1 TAB PO Q6H PRN for PAIN, #7 TAB Prov:OMID TORRES MD 05/31/16 Tramadol HCl (Tramadol HCl) 50 Mg Tablet, 50 MG PO Q4 PRN for PAIN, #20 TAB Prov:VIVIANE ELIZABETH 05/14/16 Docusate Sodium* (Colace*) 100 Mg Capsule, 100 MG PO TID, #30 CAP Prov:VIVIANE ELIZABETH 05/14/16 Reported Medications Multivit/Min/Fol Ac/Iron/Pren* ( S*) 1 Tab Tab, 1 TAB PO DAILY, TAB 02/27/16 Allergies Allergies: Coded Allergies: No Known Allergy (Unverified , 11/03/13) PMhx/Soc History of Surgery: No Anesthesia Reaction: Yes Hx Neurological Disorder: No Hx Respiratory Disorders: No Hx Cardiac Disorders: No Hx Psychiatric Problems: No Hx Miscellaneous Medical Probl: No Hx Alcohol Use: No Hx Substance Use: No Hx Tobacco Use: No Physical Exam Vitals Vital Signs Date Temp Pulse Resp B/P (MAP) Pulse Ox O2 O2 Flow FiO2 Time Delivery Rate 03/09/18 97.5 101 16 147/80 99 18:36 (102) Physical Exam Patient alert, oriented, vital signs stable. HEENT: Normocephalic, atraumatic. EYES: PERRLA, EOMI, Sclera and conjunctiva appear normal. EARS: Canals clear, tympanic membranes WNL. THROAT: Normal oropharynx. NECK: Supple, No lymphadenopathy. Full ROM without pain or tenderness. HEART: RRR, no rubs, murmurs, clicks or gallops. LUNGS: Clear to auscultation. ABDOMEN: Soft, mild tenderness in epigastric area, without peritoneal signs, no masses or hepatosplenomegaly. EXTREMITIES: No edema bilaterally. BACK: Full ROM, no deformity, normal back exam NEURO: Cranial nerves grossly intact, no motor or sensory deficit Result Diagram: 03/09/18190603/09/181906 Results 24 hrs Laboratory Tests Test 03/09/18 19:04 03/09/18 19:06 03/09/18 19:07 Bedside Urine pH (LAB) 7.0 Bedside Urine Protein (LAB) Trace Bedside Urine Glucose (UA) Negative Bedside Urine Ketones (LAB) Trace Bedside Urine Blood Negative Bedside Urine Nitrite (LAB) Negative Bedside Urine Leukocyte Esterase (L Negative POC Beta HCG, Qualitative POSITIVE White Blood Count 8.5 10^3/ul Red Blood Count 4.83 10^6/ul Hemoglobin 13.9 g/dl Hematocrit 41.4 % Mean Corpuscular Volume 85.7 fl Mean Corpuscular Hemoglobin 28.8 pg Mean Corpuscular Hemoglobin Concent 33.6 g/dl Red Cell Distribution Width 12.5 % Platelet Count 291 10^3/UL Mean Platelet Volume 9.7 fl Immature Granulocytes % 0.200 % Neutrophils % 66.1 % Lymphocytes % 22.9 % Monocytes % 8.5 % Eosinophils % 1.8 % Basophils % 0.5 % Nucleated Red Blood Cells % 0.0 /100WBC Immature Granulocytes # 0.020 10^3/ul Neutrophils # 5.6 10^3/ul Lymphocytes # 1.9 10^3/ul Monocytes # 0.7 10^3/ul Eosinophils # 0.2 10^3/ul Basophils # 0.0 10^3/ul Nucleated Red Blood Cells # 0.0 10^3/ul Sodium Level 141 mmol/L Potassium Level 3.4 mmol/L Chloride Level 102 mmol/L Carbon Dioxide Level 27 mmol/L Anion Gap 12 Blood Urea Nitrogen 12 mg/dl Creatinine 0.62 mg/dl Est Glomerular Filtrat Rate mL/min > 60 mL/min Glucose Level 93 mg/dl Calcium Level 9.1 mg/dl Total Bilirubin 0.1 mg/dl Direct Bilirubin 0.00 mg/dl Indirect Bilirubin 0.1 mg/dl Aspartate Amino Transf (AST/SGOT) 20 IU/L Alanine Aminotransferase (ALT/SGPT) 30 IU/L Alkaline Phosphatase 80 IU/L Total Protein 7.2 g/dl Albumin 4.2 g/dl Globulin 3.00 g/dl Albumin/Globulin Ratio 1.40 Lipase 131 U/L Current Medications Medications Dose Sig/Noni Start Time Status Last (Trade) Ordered Route PRN Stop Time Admin Dose Reason Admin 40 ml ONCE STAT 03/09/18 DC 03/09/18 Miscellaneous PO 18:48 03/09/18 19:08 Medication 18:52 (Gi Cocktail (2)) Procedures/MDM Physical exam unremarkable, patient in no distress, hydrated, adequate oral intake, abdomen, soft, nontender, no peritoneal signs. Differential diagnosis include but not limited to: gastrointestinal infection bacterial/viral, UTI, appendicitis, colitis, food poisoning, food intolerance. Low suspicion for acute abdomen Physical examination and clinical presentation consistent most likely with viral gastroenteritis incidental finding of . During the ED course the patient remained stable, overall improvement of the symptoms after receiving treatment in the emergency department with GI cocktail. Clinical impression discussed with patient who agrees with management. The patient is stable to be discharged home, Some side effects of prescribed medications (headache, rash, nausea, vomiting, diarrhea, interactions with other medications) were reviewed. The patient requires a follow up with the primary care provider in the next 48h. If symptoms persist, worsen or new symptoms develop, then patient should return to the ED immediately. Disclaimer: Inadvertent spelling and grammatical errors are likely due to EHR/dictation software use and do not reflect on the overall quality of patient care. Also, please note that the electronic time recorded on this note does not necessarily reflect the actual time of the patient encounter. Departure Diagnosis: Primary Impression: Gastroenteritis Additional Impression: Condition: Stable Additional Instructions: Thank you very much for allowing us to participate in your care. Your health and safety is our top priority at [facility] [place]. Call your primary care doctor TOMORROW for an appointment during the next 2-4 days and bring all the information and medications prescribed. Have prescriptions filled and follow precisely the directions on the label. If the symptoms get worse and your provider is unavailable, return to the Emergency Department immediately. TERESA LEW MD Mar 09, 2018 18:52
[2018-03-09] MEDS ORDERED: ACET325T33 PO (19:54)
[2018-03-09 20:08] VITALS: BP 134/73; PULSE 86; RESP 18
== END 2018-03-09 20:09 | disposition home or self-care (01) ==
LOC: FTE 18:32
DX: K52.9 Noninfective gastroenteritis and colitis, unspecified (principal); Z33.1 Pregnant state, incidental
CPT/HCPCS: 36415; 76705; 80053; 81003; 81025; 83690; 85025; Z7502; Z7610

== ENCOUNTER 2018-07-30 17:39 | Outpatient (CLI) | payer OTHER ==
[~2018-07-30] VITALS: Ht 157.5 cm; Wt 84.6 kg
[~2018-07-30 17:39] MED LIST changes: +ACET325T33 PO
[2018-07-30 18:45] VITALS: Ht 157.5 cm; Wt 84.6 kg
[2018-07-30] MEDS ORDERED: PNV11TAB PO (18:45)
[2018-07-30 18:46] VITALS: BP 112/67; PULSE 86
--- NOTE | 2018-07-30 23:54 | TRIAGE ---
OB Triage Datetime Report Generated by CPN: 07/30/2018 23:54 Datetime: 07/30/2018 20:30 Labor Evaluation Frequency: X0 Monitor Mode: External Duration (sec)2399: X0 Pattern: Normal: <= 5 Contractions in 10 Minutes Resting Tone [place]: Relaxed Heart Rate FHR Baseline Rate: 135 Monitor Mode: External US Variability: Moderate 6-25 bpm Accelerations: 10X10 Decelerations: None Category: Category I Comments: APPROPRIATE GESTATIONAL AGE Datetime: 07/30/2018 19:16 Stage of : OB Triage Labor Evaluation Frequency: X0 Monitor Mode: External Duration (sec)2399: X0 Pattern: Normal: <= 5 Contractions in 10 Minutes Resting Tone [place]: Relaxed Contraction Comments: ABDOMEN SOFT UPON PALPATION. Heart Rate FHR Baseline Rate: 135 Monitor Mode: External US Variability: Moderate 6-25 bpm Accelerations: 10X10 Decelerations: None Category: Category I Comments: APPROPRIATE FOR GESTATIONAL AGE Datetime: 07/30/2018 19:03 Monitor Mode: External US Datetime: 07/30/2018 18:38 Stage of : OB Triage Assessment Type: Triage EGA: 24.4 Maternal Assessment Level of Consciousness: Fully Conscious DTR's/Clonus: DTRs 2+; No Clonus Headache: Denies Blurred Vision: No Respiratory Effort: Unlabored; Regular Rhythm; Equal Expansion Breath Sounds, Left: Clear and Equal Breath Sounds, Right: Clear and Equal Nausea/Vomiting: Denies RUQ Epigastric Pain: Denies Facial Edema: None Temperature Route: Axillary Fall Risk Assessment History of Falling: (0) No Secondary Diagnosis: (0) No Ambulatory Aid: (0) Bedrest/Nurse Assist IV Therapy: (0) No Gait: (0) Normal/Bedrest/Immobile Mental Status: (0) Oriented to Own Ability Fall Score: 0 Fall Risk Score Definition: No Risk: No action required Labor Evaluation Frequency: 0 Monitor Mode: External Pattern: Normal: <= 5 Contractions in 10 Minutes Resting Tone [place]: Relaxed Heart Rate FHR Baseline Rate: 135 Monitor Mode: External US Pain Assessment Pain Scale: 0 Pain Presence: None/Denies Pain Type: N/A Pain Goal: 3 Pain Relief Measures: Comfort Measures Datetime: 07/30/2018 18:37 Stage of : OB Triage Datetime: 07/30/2018 18:36 Time of Arrival: 07/30/2018 17:36 Arrived By: Ambulatory Arrived From: Home Chief Complaint: C/O SROM X 2 DAYS, DENIES BLEEDING OR UC'S Movement: Present Contractions: Denies/Absent Rupture of Membranes: Unsure Vaginal Bleeding: None Vaginal Discharge: Denies Recent Sexual Intercouse: Yes Abdominal Trauma: Not Applicable Patient Complaints: Other Time Provider Notified: 07/30/2018 18:37 Provider Notified: DR. RAWLS Initial Plan: EFM, CALL OB
--- NOTE | 2018-08-20 00:18 | PN ---
Triage Information Date/Time late entry for service rendered on 07/30/18 Reason for visit: SROM Weeks of Gestation 24w4d /Para Diabetes: none Hypertention: none Additional information leaking fluid for 2days Objective Heart Rate: 130's Heart Rate Comments CAT I Contractions: None Exam ROM plus neg nitrazine neg Results/Medications Imaging Results MVP 8cm CVL 4.4 Disposition: Discharge Assessment/Plan A IUP 24w4d no PPROM P f/u at office EMA RAWLS MD Aug 20, 2018 00:18
== END 2018-07-30 20:50 | disposition home or self-care (01) ==
LOC: L-D 17:39 → OBT 17:39
PROVIDERS: ATTEND Obstetrics & Gynecology
DX: O42.912 Preterm premature rupture of membranes, unspecified as to length of time between rupture and onset of labor, second trimester (principal); Z3A.24 24 weeks gestation of pregnancy
CPT/HCPCS: 76815; 81003; 84112; Z7500; G0463

== ENCOUNTER 2018-08-17 14:42 | Outpatient (CLI) | payer OTHER ==
[~2018-08-17] VITALS: Ht 157.5 cm; Wt 84.1 kg
[~2018-08-17 14:42] MED LIST changes: -ACET325T33 PO; -ALBU8.5H8 INH; -AMOX1TAB10 PO; -CEPH-443 PO; -CEPH500C PO; -DOCU-144 PO; -GUAI-227 PO; -HYDR-4011 PO; -IBUP-1542 PO; -IBUP800T48 PO; -MUPI22OI2 TOP; -PRED20TA PO; -SULF1TAB31 PO; -TRAM50TA2 PO
[2018-08-17 15:03] VITALS: Ht 157.5 cm; Wt 84.1 kg
[2018-08-17 15:04] VITALS: BP 115/68; PULSE 97; RESP 18
--- NOTE | 2018-08-17 17:01 | TRIAGE ---
OB Triage Datetime Report Generated by CPN: 08/17/2018 17:01 Datetime: 08/17/2018 16:00 Stage of : OB Triage Maternal Assessment Level of Consciousness: Keenly Alert, Responsive Labor Evaluation Frequency: 0 Monitor Mode: External Resting Tone [place]: Relaxed Heart Rate FHR Baseline Rate: 135 Monitor Mode: External US Variability: Moderate 6-25 bpm Accelerations: 15X15 Decelerations: None Category: Category I Pain Assessment Pain Scale: 0 Pain Goal: 3 Vaginal Exam Membrane Status: Intact Vaginal Bleeding: None Datetime: 08/17/2018 15:49 Monitor Mode: External Monitor Mode: External US Datetime: 08/17/2018 15:00 Assessment Type: Triage Maternal Assessment Level of Consciousness: DTR's/Clonus: DTRs 2+; No Clonus Headache: Denies Blurred Vision: No Respiratory Effort: Unlabored; Regular Rhythm; Equal Expansion Breath Sounds, Left: Clear and Equal Breath Sounds, Right: Clear and Equal Nausea/Vomiting: Denies RUQ Epigastric Pain: Denies Lower Extremities Edema: None Degree: None Upper Extremities Edema: None Degree: None Facial Edema: None Fall Risk Assessment History of Falling: (0) No Secondary Diagnosis: (0) No Ambulatory Aid: (0) Bedrest/Nurse Assist IV Therapy: (0) No Gait: (0) Normal/Bedrest/Immobile Mental Status: (0) Oriented to Own Ability Fall Score: 0 Fall Risk Score Definition: No Risk: No action required Datetime: 08/17/2018 14:59 Time of Arrival: 08/17/2018 14:34 EGA: 27.1 Arrived By: Ambulatory Arrived From: Home Chief Complaint: PT. HERE C/O SORE THROAT, EAR ACHE, X 6DAYS AND PT. TRIPPED AND FELL ON BOTTOM TOD AY Movement: Present Contractions: Denies/Absent Rupture of Membranes: Denies Vaginal Bleeding: None Vaginal Discharge: Denies Recent Sexual Intercouse: Denies Abdominal Trauma: Not Applicable Patient Complaints: None Time Provider Notified: 08/17/2018 15:35 Provider Notified: CURLY Initial Plan: BPP/NST Datetime: 08/17/2018 14:47 Monitor Mode: External Monitor Mode: External US Datetime: 07/30/2018 18:38 EGA: 24.4 Fall Score: 0 Fall Risk Score Definition: No Risk: No action required
[2018-08-17] MEDS ORDERED: GUAI-637 PO (17:34)
--- NOTE | 2018-08-19 23:34 | PN ---
Triage Information Date/Time late entry for service rendered on 08/17/18 Reason for visit: sore throat and coughing and earache for 6days and fall on bottom Weeks of Gestation 27w1d /Para Diabetes: none Hypertention: none Objective Vital Signs Date Temp Pulse Resp B/P (MAP) Pulse Ox O2 O2 Flow FiO2 Time Delivery Rate 08/17/18 98.3 97 18 115/68 Room Air 15:04 (84) Heart Rate: 140's Heart Rate Comments adeq for GA Contractions: None Results/Medications Imaging Results BPP 8/8 JOSE L 20.4 Disposition: ER for non OB Assessment/Plan A IUP 27w1d S/P fall URI P to ER for further evaluation for URI EMA RAWLS MD Aug 19, 2018 23:34
== END 2018-08-17 17:06 | disposition home or self-care (01) ==
LOC: OBT 14:42 → L-D 14:43 → OBT 17:06
PROVIDERS: ATTEND Obstetrics & Gynecology
DX: O99.512 Diseases of the respiratory system complicating pregnancy, second trimester (principal); J06.9 Acute upper respiratory infection, unspecified; R05 Cough; J02.9 Acute pharyngitis, unspecified; H92.09 Otalgia, unspecified ear; Z3A.27 27 weeks gestation of pregnancy
CPT/HCPCS: 76818; Z7500; G0463

== ENCOUNTER 2018-08-17 17:09 | Emergency (ER) | payer OTHER ==
[~2018-08-17] VITALS: Wt 84.2 kg
[2018-08-17 17:10] VITALS: BP 131/69; PULSE 91; RESP 18
[2018-08-17] MEDS ORDERED: GUAI-637 PO (17:34)
--- NOTE | 2018-08-17 17:42 | ERD ---
ER Documentation Chief Complaint Chief Complaint CLEAR BY OBGYN, HAS SORE TROAT, COUGH, 27 WEEKS HPI 22-year-old female currently 27 weeks , no reported past medical surgic al history who presents with complaint of persistent cough for the past 6 days. Also with sore throat which is made worse by coughing. Recently with URI symptoms which are improving but cough lingers. Patient reports congestion and cough intermittently productive of yellowish sputum. She otherwise denies fevers, chills, ear pain, shortness of breath, dyspnea, chest pain, sick c ontacts, nausea, vomiting, diarrhea, abdominal pain, urinary symptoms such as burning or itching, vaginal bleeding or discharge. Recently had a trip and fall earlier today and seen in [facility] having unremarkable ultrasound. Only complaint is right hip pain as she sustained a contusion. She otherwise denies right lower extremity weakness or numbness, patient able to take multiple steps in examination room without issue. ROS All systems reviewed and are negative except as per history of present illness. Medications Home Meds Active Scripts Guaifenesin* (Robitussin*) 100 Mg/5 Ml Syrup, 100 MG PO Q6H PRN for COUGH for 7 Days, ML Prov:BITA BARCENAS PA-C 08/17/18 Reported Medications Multivit/Min/Fol Ac/Iron/Pren* ( S*) 1 Tab Tab, 1 TAB PO DAILY, TAB 02/27/16 Allergies Allergies: Coded Allergies: No Known Allergy (Unverified , 11/03/13) PMhx/Soc History of Surgery: Yes (gallbladder removed 05/2017) Anesthesia Reaction: Yes Hx Neurological Disorder: No Hx Respiratory Disorders: No Hx Cardiac Disorders: No Hx Psychiatric Problems: No Hx Miscellaneous Medical Probl: No Hx Alcohol Use: No Hx Substance Use: No Hx Tobacco Use: No FmHx Family History: No diabetes, No coronary disease, No other Physical Exam Vitals Vital Signs Date Temp Pulse Resp B/P (MAP) Pulse Ox O2 O2 Flow FiO2 Time Delivery Rate 08/17/18 97.3 91 18 131/69 100 17:10 (89) Physical Exam I have reviewed the triage vital signs. Const: Well nourished, well developed, appears stated age Eyes: PERRL, no conjunctival injection HENT: NCAT, Neck supple without meningismus CV: RRR, Warm, well-perfused extremities RESP: CTAB, Unlabored respiratory effort GI: 27 weeks , soft, non-tender, non-distended, no masses MSK: No gross deformities appreciated Skin: Warm, dry. No rashes Neuro: grossly non focal Psych: Appropriate mood and affect. Procedures/MDM This patient presents with acute cough, most consistent with ongoing cough following recent URI type symptoms. Differential diagnosis includes throat infection, pneumonia, ear infection. Patient is afebrile and nontoxic- appearing, presentation not consistent with acute bacterial pneumonia, influenza, asthma, transient airway hyperresponsiveness. Presentation not consistent with chronic causes of cough (including GERD, asthma, postnasal discharge, medication side effect, CHF, lung cancer or mass). Plan: Given patient not exhibiting signs of disseminated infection will symptomatically treat her cough with Robitussin, strict return precautions explained to patient in detail DISPOSITION PLAN: We discussed follow up with the patient's primary care doctor within 24 to 48 hours. Patient counseled regarding my diagnostic impression and care plan. Prior to discharge all questions answered. Pt agrees with treatment plan and understands strict return precautions. Precautionary instructions provided including instructions to return to the ER if not improving or for any worsening or changing symptoms or concerns. Disclaimer: Inadvertent spelling and grammatical errors are likely due to EHR/dictation software use and do not reflect on the overall quality of patient care. Also, please note that the electronic time recorded on this note does not necessarily reflect the actual time of the patient encounter. Departure Diagnosis: Primary Impression: Cough Condition: Stable Patient Instructions: Cough, Chronic, Uncertain Cause, (Adult) Referrals: [facility] YOU HAVE RECEIVED A MEDICAL SCREENING EXAM AND THE RESULTS INDICATE THAT YOU DO NOT HAVE A CONDITION THAT REQUIRES URGENT TREATMENT IN THE EMERGENCY DEPARTMENT. FURTHER EVALUATION AND TREATMENT OF YOUR CONDITION CAN WAIT UNTIL YOU ARE SEEN IN YOUR DOCTORS OFFICE WITHIN THE NEXT 1-2 DAYS. IT IS YOUR RESPONSIBILITY TO MAKE AN APPOINTMENT FOR FOLOW-UP CARE. IF YOU HAVE A PRIMARY DOCTOR --you should call your primary doctor and schedule an appointment IF YOU DO NOT HAVE A PRIMARY DOCTOR YOU CAN CALL OUR PHYSICIAN REFERRAL HOTLINE AT IF YOU CAN NOT AFFORD TO SEE A PHYSICIAN YOU CAN CHOSE FROM THE FOLLOWING [facility] [address] [facility] [address] [facility] [address] [facility] [address] [facility]. [facility] [address] [facility]. [facility] [address] Additional Instructions: Call your primary care doctor TOMORROW for an appointment during the next 2-3 days.See the doctor sooner or return here if your condition worsens before your appointment time. BITA BARCENAS PA-C Aug 17, 2018 17:42
== END 2018-08-17 18:20 | disposition home or self-care (01) ==
LOC: FTE 17:09
DX: O99.89 Other specified diseases and conditions complicating pregnancy, childbirth and the puerperium (principal); R05 Cough; Z3A.27 27 weeks gestation of pregnancy
CPT/HCPCS: 99282

== ENCOUNTER 2018-09-14 13:14 | Outpatient (CLI) | payer OTHER ==
[~2018-09-14] VITALS: Ht 157.5 cm; Wt 84.8 kg
[~2018-09-14 13:14] MED LIST changes: +GUAI-637 PO
[2018-09-14 13:25] VITALS: BP 106/62; PULSE 115; RESP 18; Ht 157.5 cm; Wt 84.8 kg
[2018-09-14] MEDS ORDERED: LACTATED RINGER'S 1,000 ML IV SCH (14:30)
--- NOTE | 2018-09-14 15:13 | TRIAGE ---
OB Triage Datetime Report Generated by CPN: 09/14/2018 15:13 Datetime: 09/14/2018 15:00 Stage of : OB Triage Maternal Assessment Level of Consciousness: Keenly Alert, Responsive DTR's/Clonus: DTRs 1+ Headache: Denies Nausea/Vomiting: Denies RUQ Epigastric Pain: Denies Labor Evaluation Frequency: NONE Monitor Mode: External Resting Tone [place]: Relaxed Heart Rate FHR Baseline Rate: 135 Monitor Mode: External US Variability: Moderate 6-25 bpm Accelerations: 15X15 Decelerations: None Pain Assessment Pain Presence: None/Denies Pain Type: N/A Vaginal Exam Membrane Status: Intact Datetime: 09/14/2018 13:37 Maternal Assessment Level of Consciousness: Keenly Alert, Responsive DTR's/Clonus: DTRs 1+ Headache: Denies Blurred Vision: No Nausea/Vomiting: Denies RUQ Epigastric Pain: Denies Facial Edema: None Labor Evaluation Frequency: NONE Monitor Mode: External Resting Tone [place]: Relaxed Heart Rate FHR Baseline Rate: 135 Monitor Mode: External US Variability: Moderate 6-25 bpm Accelerations: 15X15 Decelerations: None Category: Category I Pain Assessment Pain Presence: None/Denies Pain Type: N/A Vaginal Exam Membrane Status: Intact Datetime: 09/14/2018 13:22 Assessment Type: Triage Maternal Assessment Level of Consciousness: DTR's/Clonus: DTRs 2+; No Clonus Headache: Denies Blurred Vision: No Respiratory Effort: Unlabored; Regular Rhythm; Equal Expansion Breath Sounds, Left: Clear and Equal Breath Sounds, Right: Clear and Equal Nausea/Vomiting: Denies RUQ Epigastric Pain: Denies Lower Extremities Edema: None Degree: None Upper Extremities Edema: None Degree: None Facial Edema: None Fall Risk Assessment History of Falling: (0) No Secondary Diagnosis: (0) No Ambulatory Aid: (0) Bedrest/Nurse Assist IV Therapy: (0) No Gait: (0) Normal/Bedrest/Immobile Mental Status: (0) Oriented to Own Ability Fall Score: 0 Fall Risk Score Definition: No Risk: No action required Datetime: 09/14/2018 13:21 Time of Arrival: 09/14/2018 13:08 EGA: 31.1 Arrived By: Ambulatory Arrived From: Home Chief Complaint: PT. HERE C/O N/V X 3 DAYS Movement: Present Contractions: Denies/Absent Rupture of Membranes: Denies Vaginal Bleeding: None Vaginal Discharge: Denies Recent Sexual Intercouse: Denies Abdominal Trauma: Not Applicable Patient Complaints: Nausea; Vomiting Time Provider Notified: 09/14/2018 13:40 Provider Notified: MIRIAN Initial Plan: NST, BPP, CX LENGHT, CBC. CMP, UA Datetime: 09/14/2018 13:19 Monitor Mode: External Monitor Mode: External US Datetime: 08/17/2018 15:00 Fall Score: 0 Fall Risk Score Definition: No Risk: No action required Datetime: 08/17/2018 14:59 EGA: 27.1 Datetime: 07/30/2018 18:38 EGA: 24.4 Fall Score: 0 Fall Risk Score Definition: No Risk: No action required
--- NOTE | 2018-09-14 15:24 | PN ---
Triage Information Date/Time Reason for visit: Nausea Weeks of Gestation 31+ /Para n/a Diabetes: none Hypertention: none Objective Vital Signs Date Temp Pulse Resp B/P (MAP) Pulse Ox O2 O2 Flow FiO2 Time Delivery Rate 09/14/18 97.9 115 18 106/62 Room Air 13:25 (77) Heart Rate: 150's Contractions: None Results/Medications Result Diagram: 09/14/18 1411 09/14/18 1411 Results 24 hrs Laboratory Tests Test 09/14/18 14:11 White Blood Count 7.9 Red Blood Count 4.00 L Hemoglobin 11.1 #L Hematocrit 33.5 L Mean Corpuscular Volume 83.8 Mean Corpuscular Hemoglobin 27.8 L Mean Corpuscular Hemoglobin Concent 33.1 Red Cell Distribution Width 13.2 Platelet Count 217 # Mean Platelet Volume 10.4 Immature Granulocytes % 0.400 Neutrophils % 65.9 Lymphocytes % 23.5 Monocytes % 8.0 Eosinophils % 1.9 Basophils % 0.3 Nucleated Red Blood Cells % 0.0 Immature Granulocytes # 0.030 Neutrophils # 5.2 Lymphocytes # 1.9 Monocytes # 0.6 Eosinophils # 0.2 Basophils # 0.0 Nucleated Red Blood Cells # 0.0 Urine Color SOUMYA Urine Clarity SLIGHTLY CLOUDY A Urine pH 6.0 Urine Specific [place] 1.025 Urine Ketones NEGATIVE Urine Nitrite NEGATIVE Urine Bilirubin NEGATIVE Urine Urobilinogen 1+ H Urine Leukocyte Esterase NEGATIVE Urine Microscopic RBC 1 Urine Microscopic WBC 5 Urine Squamous Epithelial Cells MODERATE Urine Mucus MANY A Urine Hemoglobin NEGATIVE Urine Glucose NEGATIVE Urine Total Protein 1+ H Sodium Level 138 Potassium Level 3.8 Chloride Level 107 Carbon Dioxide Level 23 Anion Gap 8 Blood Urea Nitrogen 4 L Creatinine 0.50 Est Glomerular Filtrat Rate mL/min > 60 Glucose Level 80 Calcium Level 8.8 Total Bilirubin 0.3 Direct Bilirubin 0.00 Indirect Bilirubin 0.3 Aspartate Amino Transf (AST/SGOT) 18 Alanine Aminotransferase (ALT/SGPT) 13 Alkaline Phosphatase 128 H Total Protein 6.8 Albumin 3.2 L Globulin 3.60 H Albumin/Globulin Ratio 0.88 Medications Current Medications Lactated Ringer's 1,000 ml @ 250 mls/hr Q4H IV Last administered on 09/14/18at 14:10; Admin Dose 250 MLS/HR; Start 09/14/18 at 14:30 Disposition: Discharge Assessment/Plan BPP 12/16 Labs received IV hydration Symptom i,proved Questions answered Precautions discussed Follow up with provider LAURA VELA M.D. Sep 14, 2018 15:24
== END 2018-09-14 15:20 | disposition home or self-care (01) ==
LOC: L-D 13:14 → OBT 13:14
PROVIDERS: ATTEND Obstetrics & Gynecology
DX: O26.893 Other specified pregnancy related conditions, third trimester (principal); R11.0 Nausea; Z3A.31 31 weeks gestation of pregnancy
CPT/HCPCS: 36415; 76817; 76818; 80053; 81001; 85025; J7120; Z7500; G0463

== ENCOUNTER 2018-11-14 14:53 | Inpatient (IN) | payer OTHER ==
[~2018-11-14] VITALS: Ht 157.5 cm; Wt 92.0 kg
[~2018-11-14 14:53] MED LIST changes: -GUAI-637 PO
[2018-11-14 15:17] VITALS: Ht 157.5 cm; Wt 92.0 kg
[2018-11-14 15:18] VITALS: BP 125/66; PULSE 93; RESP 18
[2018-11-14] MEDS ORDERED: OXYTOCIN 30 UNITS/LR 500 ML IV PRN (20:00)
[2018-11-14] MEDS ORDERED: OXYCODONE/ASPIRIN (4.88/325) TAB PO PRN (20:00)
[2018-11-14] MEDS ORDERED: FENTAnyl 50 MCG/ML VIAL IV PRN (20:00)
[2018-11-14] MEDS ORDERED: BUTORPHANOL 2 MG INJ IV PRN (20:00)
[2018-11-14] MEDS ORDERED: METHYLERGONOVINE 0.2 MG INJ IM PRN (20:00)
[2018-11-14] MEDS ORDERED: MISOPROSTOL 200 MCG TAB PR PRN (20:00)
[2018-11-14] MEDS ORDERED: LIDOCAINE 1% (MPF) 30 ML INJ INJ PRN (20:00)
[2018-11-14] MEDS ORDERED: OXYTOCIN 30 UNITS/LR 500 ML IV SCH ×2 (20:00)
[2018-11-14] MEDS ORDERED: AMPICILLIN 2 GM/NS (PMX) 100 ML IV ONE (20:00)
[2018-11-14] MEDS ORDERED: IBUPROFEN 600 MG TAB PO PRN (20:00)
[2018-11-14] MEDS ORDERED: CARBOPROST 250 MCG INJ IM PRN (20:00)
[2018-11-14] MEDS: LACTATED RINGER'S 1,000 ML IV SCH ×2 (21:41→22:41)
[2018-11-14] MEDS ORDERED: FENTAnyl 2MCG/ML-ROPIV 0.2% 100 ML ONE (23:27)
[2018-11-15] MEDS ORDERED: DIPHENHYDRAMINE 50 MG INJ IV PRN
[2018-11-15] MEDS ORDERED: AMPICILLIN 1 GM/NS (PMX) 50 ML IV SCH
[2018-11-15] MEDS ORDERED: FENTAnyl 2MCG/ML-ROPIV 0.2% 100 ML BAG EPI SCH
[2018-11-15] MEDS ORDERED: NALOXONE (0.4 MG/ML) INJ IV PRN
[2018-11-15] MEDS ORDERED: OXYTOCIN 30 UNITS/LR 500 ML IV SCH ×2 (03:37)
[2018-11-15] MEDS ORDERED: ONDANSETRON 4 MG INJ IV PRN ×2 (04:00)
[2018-11-15] MEDS ORDERED: SENNA/DOCUSATE NA (8.6MG/50MG) TAB PO PRN (04:00)
[2018-11-15] MEDS ORDERED: MISOPROSTOL 200 MCG TAB PR PRN (04:00)
[2018-11-15] MEDS ORDERED: IBUPROFEN 600 MG TAB PO PRN (04:00)
[2018-11-15] MEDS ORDERED: OXYTOCIN 30 UNITS/LR 500 ML IV PRN (04:00)
[2018-11-15] MEDS ORDERED: MAGNESIUM HYDROXIDE 30ML CUP PO PRN (04:00)
[2018-11-15] MEDS ORDERED: BENZOCAINE 20% 56 ML SPRAY TOP PRN (04:00)
[2018-11-15] MEDS ORDERED: METHYLERGONOVINE 0.2 MG INJ IM PRN (04:00)
[2018-11-15] MEDS ORDERED: WITCH HAZEL/GLYCERIN PAD PR PRN (04:00)
[2018-11-15] MEDS ORDERED: CARBOPROST 250 MCG INJ IM PRN (04:00)
[2018-11-15] MEDS ORDERED: ACETAMINOPHEN 325 MG TAB PO PRN ×2 (04:00)
[2018-11-15] MEDS ORDERED: DIBUCAINE 1% 30 GM OINT TOP PRN (04:00)
[2018-11-15 04:50] VITALS: BP 119/80; PULSE 67; RESP 19
[2018-11-15] MEDS: LACTATED RINGER'S 1,000 ML IV* SCH ×3 (05:31→18:16)
[2018-11-15 05:50] VITALS: BP 121/83; PULSE 74; RESP 19
[2018-11-15] MEDS: LANOLIN HPA 1 PKT TOP PRN (05:56)
[2018-11-15 08:00] VITALS: BP 107/61; PULSE 69; RESP 18
[2018-11-15 12:00] VITALS: BP 118/68; PULSE 72; RESP 18
[2018-11-15 16:00] VITALS: BP 109/59; PULSE 74; RESP 18
[2018-11-15 19:50] VITALS: BP 113/63; PULSE 77; RESP 19
[2018-11-16 03:30] VITALS: BP 115/68; PULSE 68; RESP 21
[2018-11-16 08:00] VITALS: BP 106/60; PULSE 88; RESP 18
[2018-11-16 16:48] VITALS: BP 121/60; PULSE 89; RESP 18
[2018-11-16 19:45] VITALS: BP 118/75; PULSE 92; RESP 18
[2018-11-17] MEDS: LANOLIN HPA 1 PKT TOP PRN (01:29)
[2018-11-17 04:30] VITALS: BP 127/71; PULSE 77; RESP 19
[2018-11-17 09:00] VITALS: BP 110/62; PULSE 70
== END 2018-11-17 12:30 | disposition home or self-care (01) | DRG 807 ==
LOC: OBT 14:53 → L-D 14:53 → OBT 19:50 → L-D 19:50 → PP1 11-15 04:51
PROVIDERS: ADMIT Obstetrics & Gynecology; ATTEND Obstetrics & Gynecology
PROC: 10E0XZZ Delivery of Products of Conception, External Approach (ICD-10-PCS; principal; 2018-11-15)
PROC: 0HQ9XZZ Repair Perineum Skin, External Approach (ICD-10-PCS; 2018-11-15)
DX: O70.9 Perineal laceration during delivery, unspecified (principal); Z37.0 Single live birth; Z3A.40 40 weeks gestation of pregnancy
CPT/HCPCS: 62322; 76815; 76818; 85025; 85610; 85730; 86592; 86850; 86900; 86901; 87340; G0463; J0290; J2590; J3010; J7120